=== PATIENT | male | born 1990 | race Caucasian/White ===

== ENCOUNTER 2017-03-23 17:00 | Inpatient (IN) | payer OTHER ==
[2017-03-23 17:09] VITALS: BMI 26.5
[2017-03-23 18:13] LABS: RBC URINE 20 /hpf (0-3); URINE BACTERIA RARE (<OCC); URINE BILIRUBIN NEGATIVE (NEGATIVE); URINE BLOOD 2+ (NEGATIVE); URINE COLOR Yellow (YELLOW); URINE GLUCOSE (UA) NORMAL (Normal); URINE KETONE NEGATIVE (NEGATIVE); URINE LEUKOCYTE ESTERASE NEG Leu/uL (Negative); URINE PROTEIN 1+ mg/dL (NEGATIVE); WBC URINE 2 /hpf (0-5)
[2017-03-23 18:37] LABS: BASO # 0.1 K/uL (0.0-0.2); BASO % 0.4 % (0.0-2.0); EOS # 0.1 K/uL (0.0-0.7); EOS % 0.6 % (0.0-4.0); HEMATOCRIT 39.2 % (35.0-51.0); LYMPH # 1.4 K/uL (1.0-4.3); LYMPH % 6.9 % (20.0-40.0); MEAN CELL VOLUME 78.9 fL (80.0-94.0); MEAN CORPUSCULAR HGB CONC 31.7 g/dL (33.0-37.0); MEAN PLATELET VOLUME 7.6 fL (7.2-11.7); MONO % 5.1 % (0.0-10.0); PLATELET COUNT 344 K/uL (130-400); WHITE BLOOD COUNT 20.1 K/uL (4.8-10.8)
[2017-03-23 18:45] LABS: CHLORIDE 105 mmol/L (98-107); POTASSIUM 3.9 mmol/L (3.6-5.2); SODIUM 143 mmol/L (132-148)
[2017-03-23 18:47] LABS: GFR AFRICAN-AMERICAN > 60
[2017-03-23 18:48] LABS: ALB/GLOB RATIO 1.2 (1.0-2.1); ALKALINE PHOSPHATASE 136 U/L (38-126); ALT/SGPT 75 U/L (21-72); AST/SGOT 129 U/L (17-59); BILIRUBIN,TOTAL 0.6 mg/dL (0.2-1.3); BLOOD UREA NITROGEN 12 mg/dL (9-20); CALCIUM 8.8 mg/dl (8.6-10.4); CARBON DIOXIDE 28 mmol/L (22-30); GLUCOSE,RANDOM 102 mg/dL (75-110); TOTAL PROTEIN 7.7 g/dL (6.3-8.3)
[2017-03-23] MEDS ORDERED: Sodium Chloride 0.9% 1,000 ML IV ONE (18:51)
[2017-03-23] MEDS ORDERED: Sodium Chloride 0.9% 1,000 ML ONE (19:01)
[2017-03-23 19:32] LABS: NEUTROPHIL 96 % (50-75); TOTAL CELLS COUNTED 100
--- NOTE | 2017-03-23 20:17 | US ---
EXAM: US Abdomen Limited, Right Upper Quadrant CLINICAL HISTORY: 27 years old, male; Pain; Abdominal pain; Generalized; Additional info: Ruq pain TECHNIQUE: Real-time ultrasound of the right upper quadrant with image documentation. EXAM DATE/TIME: 03/23/2017 6:52 PM COMPARISON: There are no prior studies for comparison. FINDINGS: Liver: Liver appears mildly enlarged.There is hepatopedal flow in the main portal vein. Gallbladder: Gallbladder is distended. There are multiple shadowing stones. There is sludge. There is no wall thickening. Common bile duct: Common bile duct measures 6.5 mm in diameter at the jenny hepatis. Pancreas: Pancreas is partially obscured by bowel gas. Visualized portion is echogenic. Right kidney: Right kidney is unremarkable. Aorta: Visualized portions of the aorta and inferior vena cava are unremarkable. IMPRESSION: Gallstones and sludge with mildly prominent common duct Patient was not tender over the gallbladder
[2017-03-23] MEDS ORDERED: Morphine 4 MG/ML VIAL ONE (20:48)
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
--- NOTE | 2017-03-23 21:18 | C.PDOC ---
Time Seen by Provider: 03/23/17 18:36 Chief Complaint (Nursing): Abdominal Pain History Per: Patient, Family Onset/Duration Of Symptoms: Days, Waxing/Waning Current Symptoms Are (Timing): Worse Severity: Severe Location Of Pain/Discomfort: RUQ Radiation Of Pain To:: Back Quality Of Discomfort: "Pain" Associated Symptoms: Nausea, Vomiting Exacerbating Factors: Food Alleviating Factors: None Additional History Per: Prior Records Past Medical History Reviewed: Historical Data, Nursing Documentation, Vital Signs Vital Signs: Last Vital Signs Temp 98.4 F 03/23/17 20:52 Pulse 79 03/23/17 20:52 Resp 16 03/23/17 20:52 BP 116/73 03/23/17 20:52 Pulse Ox 100 03/23/17 21:18 - Medical History PMH: Gastritis Surgical History: No Surg Hx Family History: States: Unknown Family Hx - Social History Hx Alcohol Use: No Hx Substance Use: No - Immunization History Hx Tetanus Toxoid Vaccination: No Hx Influenza Vaccination: No Hx Pneumococcal Vaccination: No Review Of Systems Except As Marked, All Systems Reviewed And Found Negative. Constitutional: Negative for: Weakness Cardiovascular: Negative for: Chest Pain Respiratory: Negative for: Shortness of Breath Gastrointestinal: Positive for: Nausea, Vomiting, Abdominal Pain. Negative for : Diarrhea Musculoskeletal: Negative for: Neck Pain Skin: Negative for: Rash Neurological: Negative for: Weakness, Numbness, Seizures, Altered Mental Status Physical Exam - Physical Exam Appears: Non-toxic Skin: Normal Color, Warm, Dry, No Rash Head: Atraumatic, Normacephalic Eye(s): bilateral: PERRL, EOMI Neck: Normal ROM, Supple Cardiovascular: Rhythm Regular Respiratory: Normal Breath Sounds Gastrointestinal/Abdominal: Soft, Tenderness (RUQ) Extremity: Normal ROM Neurological/Psych: Oriented x3, Normal Motor, Normal Sensation ED Course And Treatment - Laboratory Results Result Diagrams: 03/23/17 18:34 03/23/17 18:34 Lab Interpretation: Abnormal Interpretation Of Abnormal: Leukocytosis. Abnormal LFTs. O2 Sat by Pulse Oximetry: 100 Pulse Ox Interpretation: Normal - CT Scan/US RUQ Sono Other Rad Studies (CT/US): Read By Radiologist, Radiology Report Reviewed CT/US Interpretation: IMPRESSION: Gallstones and sludge with mildly prominent common duct - Physician Consult Information Physician Contacted: Higinio Rivera (Surgery) Outcome Of Conversation: He wants pt admitted on hospitalist service. He recommened a HIDA scan. He is planning taking pt to OR tomorrow. Progress - Interventions Interventions:: Observation, Intravenous fluid - Medications Administered Intravenous: Antiemetic, H-2 mirela, NSAID, Opiate - Data Reviewed Data Reviewed: Lab, Diagnostic imaging, Old records - Patient Status Patient status: Partially improved - Continuity of Care Discussed patient case with:: Patient, Family-HIPPA compliant, ED Nurse, On- call PMD-pt unassigned Discussed pt. case with senior solutions workflow consultant/specialty: General Surgery - Patient Plan Patient Plan: Admission Disposition Discussed With DrCyndi: Manolo Tyson Comment: He accepted pt on hospitalist service. Doctor Will See Patient In The: Hospital Counseled Patient/Family Regarding: Studies Performed, Diagnosis - Disposition Disposition: HOSPITALIZED Disposition Time: 21:27 Condition: FAIR - Clinical Impression Clinical Impression: Right upper quadrant abdominal pain, Leukocytosis, Gallstones
[2017-03-23] MEDS ORDERED: Sodium Chloride 0.9% 1,000 ML IV SCH (22:15)
[2017-03-23] MEDS: Potassium Ch 20mEq in D5-1/2NS 1,000 ML IV SCH (22:57)
[2017-03-24 06:26] LABS: BASO % 0.3 % (0.0-2.0); HEMATOCRIT 37.7 % (35.0-51.0); LYMPH # 0.9 K/uL (1.0-4.3); LYMPH % 6.8 % (20.0-40.0); MEAN CELL VOLUME 78.5 fL (80.0-94.0); MEAN CORPUSCULAR HEMOGLOBIN 25.1 pg (27.0-31.0); MEAN PLATELET VOLUME 7.9 fL (7.2-11.7); MONO # 0.8 K/uL (0.0-0.8); MONO % 6.2 % (0.0-10.0); PLATELET COUNT 288 K/uL (130-400); RED CELL DISTRIBUTION WIDTH 13.1 % (11.5-14.5); WHITE BLOOD COUNT 13.3 K/uL (4.8-10.8)
--- NOTE | 2017-03-24 06:51 | CP.PCM.PN ---
Subjective - Date & Time of Evaluation Date of Evaluation: 03/24/17 Time of Evaluation: 07:07 - Subjective Subjective: PGY 1 Medicine Note- Dr. Mack 's service Pt seen and examined in no acute distress. He states that he is in sharp pain. The pain is rated a 10/10. He states that he does not want to move or take deep breaths because of the pain. Patient last consumed a meal around midnight. Patient denies subjective fevers or chills, chest pain, nausea, vomiting, paresthesias, headaches at this time. Objective - Vital Signs/Intake and Output Vital Signs (last 24 hours): Temp Pulse Resp BP Pulse Ox 98.3 F 85 20 139/90 97 03/24/17 00:19 03/24/17 00:19 03/24/17 01:38 03/24/17 00:19 03/24/17 00:19 - Medications Medications: Current Medications Ceftriaxone Sodium 1 gm/ (Sodium Chloride) 100 mls @ 100 mls/hr IVPB DAILY LAILA Potassium Chloride/Dextrose/Sod Cl (Potassium Chl 20 Meq In D5-1/2ns) 1,000 mls @ 100 mls/hr IV .Q10H LAILA Last Admin: 03/23/17 22:57 Dose: 100 mls/hr Morphine Sulfate (Morphine) 3 mg IVP Q3H PRN PRN Reason: Pain, moderate (4-7) Last Admin: 03/24/17 05:08 Dose: 3 mg Ondansetron HCl (Zofran Inj) 4 mg IVP Q6H PRN PRN Reason: Nausea/Vomiting Last Admin: 03/24/17 05:14 Dose: 4 mg Pantoprazole Sodium (Protonix Inj) 40 mg IVP DAILY [facility] Pneumococcal Polyvalent Vaccine (Pneumovax 23 Vaccine) 0.5 ml IM .ONCE ONE Stop: 03/25/17 10:01 - Labs Labs: 03/24/17 06:18 - Constitutional Appears: Non-toxic, No Acute Distress - Head Exam Head Exam: ATRAUMATIC, NORMAL INSPECTION, NORMOCEPHALIC - Eye Exam Eye Exam: EOMI, Normal appearance, PERRL Pupil Exam: NORMAL ACCOMODATION - ENT Exam ENT Exam: Mucous Membranes Moist - Neck Exam Neck Exam: Full ROM - Respiratory Exam Respiratory Exam: NORMAL BREATHING PATTERN - Cardiovascular Exam Cardiovascular Exam: +S1, +S2 - GI/Abdominal Exam GI & Abdominal Exam: Guarding, Soft, Tenderness (RUQ), Normal Bowel Sounds - Extremities Exam Extremities Exam: Full ROM, Normal Capillary Refill - Back Exam Back Exam: Full ROM - Neurological Exam Neurological Exam: Alert, Awake, CN II-XII Intact, Oriented x3 - Psychiatric Exam Psychiatric exam: Normal Affect, Normal Mood - Skin Skin Exam: Dry, Intact, Normal Color, Warm Assessment and Plan - Assessment and Plan (Free Text) Assessment: RUQ abdominal pain -Likely secondary to cholecystitis -Leukocytosis on admission 20.1. Decreases to 13.3 -Patient is afebrile -Abdominal u/s: Gallstones and sludge with mildly prominent common duct measuring approx 6.5 mm in diameter . Refer to complete read -HIDA scan: Non visualization of cystic duct, common duct, small bowel at 60 mins. Fat delaying image not performed as patient going to OR -Rocephin 1gm ivpb daily -Morphine 3mg ivp q3 prn pain moderate changed to Dilaudid 1mg Q4 PRN -D5 1/2NS with 20meqKCl @ 100cc/hr -Protonix 40mg ivp daily -Liquid diet -VTE ppx on hold in case patient goes to OR -EKG performed for pre op. -Detsky score Class 1 which is a 6% Risk of complications for non cardiac surgery. 27 yo patient has no cardiac history significant for NC arrythmia, nor CVA, COPD, DM. -Surgery Dr Rivera consulted- F/U Hx of herniated discs -Dilaudid 1mg Q4 PRN PPX -NPO -VTE ppx on hold -SCDs -Protonix 40mg ivp daily -D5 1/2NS with 20meqKCl @ 100cc/hr
[2017-03-24 06:59] LABS: CHLORIDE 101 mmol/L (98-107); POTASSIUM 3.5 mmol/L (3.6-5.2); SODIUM 137 mmol/L (132-148)
[2017-03-24 07:01] LABS: BILIRUBIN,TOTAL 1.7 mg/dL (0.2-1.3); CARBON DIOXIDE 24 mmol/L (22-30)
[2017-03-24 07:02] LABS: ALB/GLOB RATIO 1.2 (1.0-2.1); ALKALINE PHOSPHATASE 214 U/L (38-126); ALT/SGPT 315 U/L (21-72); AST/SGOT 310 U/L (17-59); BLOOD UREA NITROGEN 8 mg/dL (9-20); CALCIUM 8.1 mg/dl (8.6-10.4); GLUCOSE,RANDOM 146 mg/dL (75-110); MAGNESIUM 1.9 mg/dL (1.6-2.3); PHOSPHOROUS 3.1 mg/dL (2.5-4.5); TOTAL PROTEIN 6.8 g/dL (6.3-8.3)
[2017-03-24 07:04] LABS: GFR AFRICAN-AMERICAN > 60
[2017-03-24] MEDS: Potassium Ch 20mEq in D5-1/2NS 1,000 ML IV SCH (08:17)
[2017-03-24 09:30] LABS: NEUTROPHIL 91 % (50-75); TOTAL CELLS COUNTED 100
[2017-03-24] MEDS ORDERED: HYDROmorphone 1 mg/ml ISec IVP PRN (10:55)
[2017-03-24 11:18] LABS: AMYLASE 70 U/L (30-110)
[2017-03-24 11:44] LABS: INR 1.1
[2017-03-24] MEDS ORDERED: Midazolam 2 MG/2 ML VIAL ONE (13:02)
[2017-03-24] MEDS ORDERED: Propofol 10 mg/ml Inj (20 ML) ONE ×2 (13:02→14:47)
[2017-03-24] MEDS ORDERED: Neostigmine Methylsulfate 3mg/3ml Syringe IV ONE (14:19)
--- NOTE | 2017-03-24 14:19 | NM ---
PROCEDURE: Nuclear Medicine Hepatobiliary Scan HISTORY: Abdominal pain. COMPARISON: None available. TECHNIQUE: 5.1 mCi of technetium 99m Mebrofenin was administered intravenously. Planar images of the abdomen were obtained at 5 min intervals to 60 mins. Delayed images were also obtained. FINDINGS: LIVER: Timely and heterogeneous uptake COMMON BILE DUCT: Not visualized at 60 minutes GALLBLADDER: Not identified at 60 mins. SMALL BOWEL: Not Identified at 60 mins. IMPRESSION: Nonvisualization of cystic duct, common duct, small bowel at 60 minutes. Department was informed fat delayed imaging was not necessary as the patient is going to the OR.
[2017-03-24] MEDS ORDERED: Morphine 4 MG/ML VIAL ONE (15:04)
[2017-03-24] MEDS: HYDROmorphone 0.5 mg/0.5 ml ISec IVP PRN ×2 (15:34→16:08)
[2017-03-24 15:49] LABS: HEMATOCRIT 37.3 % (35.0-51.0); MEAN CORPUSCULAR HEMOGLOBIN 25.1 pg (27.0-31.0); MEAN CORPUSCULAR HGB CONC 31.8 g/dL (33.0-37.0); MEAN PLATELET VOLUME 7.7 fL (7.2-11.7); RED CELL DISTRIBUTION WIDTH 13.1 % (11.5-14.5); WHITE BLOOD COUNT 12.7 K/uL (4.8-10.8)
[2017-03-24] MEDS ORDERED: Potassium Chloride 20 MEQ in Dextrose 5%/0.45% NS 1,000 ML IV SCH (18:40)
[2017-03-25] MEDS: Potassium Ch 20mEq in D5-1/2NS 1,000 ML IV SCH ×2 (03:15→17:03)
[2017-03-25 06:44] LABS: CHLORIDE 96 mmol/L (98-107); POTASSIUM 3.5 mmol/L (3.6-5.2); SODIUM 132 mmol/L (132-148)
[2017-03-25 06:46] LABS: BILIRUBIN,TOTAL 4.1 mg/dL (0.2-1.3); GFR AFRICAN-AMERICAN > 60
[2017-03-25 06:47] LABS: ALKALINE PHOSPHATASE 246 U/L (38-126); ALT/SGPT 277 U/L (21-72); AST/SGOT 195 U/L (17-59); BLOOD UREA NITROGEN 4 mg/dL (9-20); CARBON DIOXIDE 30 mmol/L (22-30); GLUCOSE,RANDOM 118 mg/dL (75-110); PHOSPHOROUS 2.6 mg/dL (2.5-4.5); TOTAL PROTEIN 6.6 g/dL (6.3-8.3)
[2017-03-25 06:48] LABS: CALCIUM 8.1 mg/dl (8.6-10.4); MAGNESIUM 1.7 mg/dL (1.6-2.3)
[2017-03-25 06:58] LABS: BASO # 0.1 K/uL (0.0-0.2); BASO % 0.4 % (0.0-2.0); EOS % 0.4 % (0.0-4.0); HEMATOCRIT 36.5 % (35.0-51.0); LYMPH # 1.2 K/uL (1.0-4.3); LYMPH % 10.3 % (20.0-40.0); MEAN CORPUSCULAR HEMOGLOBIN 25.2 pg (27.0-31.0); MEAN CORPUSCULAR HGB CONC 31.9 g/dL (33.0-37.0); MEAN PLATELET VOLUME 7.8 fL (7.2-11.7); MONO % 8.1 % (0.0-10.0); RED CELL DISTRIBUTION WIDTH 13.4 % (11.5-14.5)
--- NOTE | 2017-03-25 07:38 | CP.PCM.PN ---
<Rukhsana Russo - Last Filed: 03/25/17 17:06> Subjective - Date & Time of Evaluation Date of Evaluation: 03/25/17 Time of Evaluation: 07:38 - Subjective Subjective: PGY 1 Medicine Note- Dr. Cai's service Pt seen and examined in no acute distress. Pt is s/p day 1 cholecystectomy. On earlier assessment, patient stated that he was in pain though he was not yet due for his next medication dose. On second assessment, patient was found to be resting comfortable with no signs of apparent discomfort. Patient is tolerating a liquid diet and burping. He admits to eructation (burping) and denies flatus and BM's. Patient states that his last BM was yesterday; however he does not have bowel movements daily. Patient was febrile early this morning and then again this afternoon. The high was 101.9. Patient was administered tylenol. Patient again would not address the nature of his ankle bracelet but admitted that his cash management officer is aware. Patient denies nausea, vomiting, diarrhea, chest pain, palpitations or headaches at this time. Objective - Vital Signs/Intake and Output Vital Signs (last 24 hours): Temp Pulse Resp BP Pulse Ox 98.7 F 104 H 18 106/70 95 03/25/17 00:00 03/25/17 00:00 03/25/17 00:00 03/25/17 00:00 03/25/17 00:00 Intake and Output: 03/25/17 03/25/17 06:59 18:59 Intake Total 300 Output Total 115 Balance 185 - Medications Medications: Current Medications Hydromorphone HCl (Dilaudid) 2 mg IVP Q4H PRN PRN Reason: Pain, moderate (4-7) Last Admin: 03/25/17 05:16 Dose: 2 mg Ceftriaxone Sodium 1 gm/ (Sodium Chloride) 100 mls @ 100 mls/hr IVPB DAILY LAILA Last Admin: 03/24/17 10:59 Dose: 100 mls/hr Potassium Chloride/Dextrose/Sod Cl (Potassium Chl 20 Meq In D5-1/2ns) 1,000 mls @ 100 mls/hr IV .Q10H LAILA Last Admin: 03/25/17 03:15 Dose: 100 mls/hr Ondansetron HCl (Zofran Inj) 4 mg IVP Q6H PRN PRN Reason: Nausea/Vomiting Last Admin: 03/24/17 10:59 Dose: 4 mg Pantoprazole Sodium (Protonix Inj) 40 mg IVP DAILY LAILA Last Admin: 03/24/17 10:59 Dose: 40 mg Pneumococcal Polyvalent Vaccine (Pneumovax 23 Vaccine) 0.5 ml IM .ONCE ONE Stop: 03/25/17 10:01 - Labs Labs: 03/25/17 06:24 03/25/17 06:24 PT 12.7 SECONDS (9.7-12.2) H 03/24/17 11:22 INR 1.1 03/24/17 11:22 APTT 33 SECONDS (21-34) 03/24/17 11:22 - Constitutional Appears: Non-toxic, No Acute Distress - Head Exam Head Exam: ATRAUMATIC, NORMAL INSPECTION, NORMOCEPHALIC - Eye Exam Eye Exam: EOMI, Normal appearance, PERRL Pupil Exam: NORMAL ACCOMODATION - ENT Exam ENT Exam: Mucous Membranes Moist - Neck Exam Neck Exam: Full ROM - Respiratory Exam Respiratory Exam: Clear to Ausculation Bilateral, NORMAL BREATHING PATTERN. absent: Wheezes - Cardiovascular Exam Cardiovascular Exam: REGULAR RHYTHM, +S1, +S2 - GI/Abdominal Exam GI & Abdominal Exam: Guarding, Soft, Tenderness (RUQ ), Normal Bowel Sounds Additional comments: surgical site c/d/i with ISRA drain in place ~ 40cc of serosanguineous drainage noted - Extremities Exam Extremities Exam: Full ROM, Normal Capillary Refill. absent: Pedal Edema, Tenderness - Back Exam Back Exam: Full ROM - Neurological Exam Neurological Exam: Alert, Awake, CN II-XII Intact, Oriented x3 Neuro motor strength exam: Left Upper Extremity: 5, Right Upper Extremity: 5, Left Lower Extremity: 5, Right Lower Extremity: 5 - Psychiatric Exam Psychiatric exam: Normal Affect, Normal Mood - Skin Skin Exam: Dry, Intact, Normal Color, Warm Assessment and Plan - Assessment and Plan (Free Text) Assessment: S/P Cholecystectomy -Patient febrile around 7 am 101.9. (Vital signs were entered in late this morning) . Rechecked at 13:00 at 101.7. Acetaminophen administered -Abdominal u/s: Gallstones and sludge with mildly prominent common duct measuring approx 6.5 mm in diameter . Refer to complete read -HIDA scan: Non visualization of cystic duct, common duct, small bowel at 60 mins. Fat delaying image not performed as patient going to OR -Rocephin 1gm ivpb daily -Dilaudid 2 mg IV Q4 -D5 1/2NS with 20meqKCl @ 100cc/hr. Will discontinue once patient is on regular diet. -Protonix 40mg ivp daily -Liquid diet -EKG performed for pre op - NSR -MRCP in AM for elevated LFTs. NPO in AM -Surgery Dr Rivera on the case- F/U recommendations Hx of herniated discs -Dilaudid 2mg Q4 PRN PPX -NPO -SCDs. Encourage ambulation as tolerated. -Protonix 40mg ivp daily -Incentive Spirometer <Mariel Cai V - Last Filed: 03/25/17 19:48> Objective - Vital Signs/Intake and Output Vital Signs (last 24 hours): Temp Pulse Resp BP Pulse Ox 98.1 F 116 H 20 104/65 95 03/25/17 16:00 03/25/17 16:00 03/25/17 16:00 03/25/17 16:00 03/25/17 16:00 Intake and Output: 03/25/17 03/26/17 18:59 06:59 Output Total 40 Balance -40 - Medications Medications: Current Medications Acetaminophen (Tylenol 325mg Tab) 650 mg PO Q6 PRN PRN Reason: Fever >100.4 F Last Admin: 03/25/17 14:57 Dose: 650 mg Hydromorphone HCl (Dilaudid) 2 mg IVP Q4H PRN PRN Reason: Pain, moderate (4-7) Last Admin: 03/25/17 17:29 Dose: 2 mg Potassium Chloride/Dextrose/Sod Cl (Potassium Chl 20 Meq In D5-1/2ns) 1,000 mls @ 100 mls/hr IV .Q10H LAILA Last Admin: 03/25/17 17:03 Dose: 100 mls/hr Piperacillin Sod/Tazobactam Sod (Zosyn 3.375 Gm Iv Premix) 3.375 gm in 50 mls @ 100 mls/hr IVPB Q6H LAILA Last Admin: 03/25/17 19:14 Dose: 100 mls/hr Ondansetron HCl (Zofran Inj) 4 mg IVP Q6H PRN PRN Reason: Nausea/Vomiting Last Admin: 03/24/17 10:59 Dose: 4 mg Pantoprazole Sodium (Protonix Inj) 40 mg IVP DAILY [facility]ILA Last Admin: 03/25/17 10:21 Dose: 40 mg - Labs Labs: 03/25/17 06:24 03/25/17 06:24 PT 12.7 SECONDS (9.7-12.2) H 03/24/17 11:22 INR 1.1 03/24/17 11:22 APTT 33 SECONDS (21-34) 03/24/17 11:22 Attending/Attestation - Attestation I have personally seen and examined this patient.: Yes I have fully participated in the care of the patient.: Yes I have reviewed all pertinent clinical information, including history, physical exam and plan: Yes Notes (Text): Patient seen, examined and case discussed with day-time resident. Patient seen this morning. Patient reporting abdominal pain and burping. Patient denies flatus nor bowel movement at the time of my exam. Patient denied nausea nor vomitting. Patient was resting comfortably prior to my arrival and woke up with I interviewed him. Patient noted to have monitoring ankle bracelet over his right lower extremity, patient did not go into details regarding his bracelet but he noted that his cash management officer was aware he was in the hospital. Assessment/Plan 1) Acute cholecystis; Cholelithiasis * General surgery (Dr. Field) on the case-->help appreciated * Infectious disease (Dr. Vila) on the case-->help appreciated * HIDA (03/23/17): nonvisualization of cystic duct, common duct, small bowel at 60 minutes. Department was informated fate delayed imaging was not necessary at the patient was going to the OR * Abdominal US (03/23/17): gallstones and sludge with mildly prominent common duct. Not tender over the gallbladder * Ordered for MRCP per surgery to r/o CBD and recommended for infectious disease for persistent fever * Rocephin discontinued; Started on Zosyn 3.75 IV Q 6hr per ID * Dilaudid 2mg IVQ 4PRN pain * Tylenol 650mg PO Q 6PRN T>100.4F * D51/2NS 100cc/hr 2) Postoperative Fever * Infectious disease (Dr. Vila) on the case-->help appreciated * Ordered for chest xray * Tylenol 650mg PO Q 6PRN T>100.4F * Rocephin discontinued; Started on Zosyn 3.75 IV Q 6hr per ID * Incentive spirometer 3) Hx of herniated discs * Dilaudid 2mg Q4 PRN moderate pain * Patient noted he was on narcotic pain prns per his PMD to relieve his back pain 4) Hypokalemia * replete 5) Transaminitis * Downtrending 6) Abnormal UA * repeat UA 7) PPX * NPO * SCDs. Encourage ambulation as tolerated. * Protonix 40mg ivp daily * Incentive Spirometer * Per surgery to determine when anticoagulation can be restarted
[2017-03-25] MEDS ORDERED: Potassium Chloride 20 mEq ER Tab PO ONE (09:30)
[2017-03-25] MEDS ORDERED: Pneumococcal 23-Valent Vaccine IM ONE (10:00)
--- NOTE | 2017-03-25 15:52 | CP.PCM.PN ---
Subjective - Date & Time of Evaluation Date of Evaluation: 03/25/17 Time of Evaluation: 15:50 - Subjective Subjective: SP lap adelso yesterday for severe acute cholecystis stable T101.9 ISRA serosanguinous abd incisional tenderness tolerating liquids P MRCP RO CBD stone Objective - Vital Signs/Intake and Output Vital Signs (last 24 hours): Temp Pulse Resp BP Pulse Ox 101.7 F H 104 H 20 105/69 94 L 03/25/17 14:57 03/25/17 07:00 03/25/17 07:00 03/25/17 07:00 03/25/17 07:00 Intake and Output: 03/25/17 03/25/17 06:59 18:59 Intake Total 300 Output Total 115 Balance 185 - Medications Medications: Current Medications Acetaminophen (Tylenol 325mg Tab) 650 mg PO Q6 PRN PRN Reason: Fever >100.4 F Last Admin: 03/25/17 14:57 Dose: 650 mg Hydromorphone HCl (Dilaudid) 2 mg IVP Q4H PRN PRN Reason: Pain, moderate (4-7) Last Admin: 03/25/17 13:18 Dose: 2 mg Ceftriaxone Sodium 1 gm/ (Sodium Chloride) 100 mls @ 100 mls/hr IVPB DAILY [facility] Last Admin: 03/25/17 10:21 Dose: 100 mls/hr Potassium Chloride/Dextrose/Sod Cl (Potassium Chl 20 Meq In D5-1/2ns) 1,000 mls @ 100 mls/hr IV .Q10H [facility] Last Admin: 03/25/17 03:15 Dose: 100 mls/hr Ondansetron HCl (Zofran Inj) 4 mg IVP Q6H PRN PRN Reason: Nausea/Vomiting Last Admin: 03/24/17 10:59 Dose: 4 mg Pantoprazole Sodium (Protonix Inj) 40 mg IVP DAILY [facility] Last Admin: 03/25/17 10:21 Dose: 40 mg - Labs Labs: 03/25/17 06:24 03/25/17 06:24 PT 12.7 SECONDS (9.7-12.2) H 03/24/17 11:22 INR 1.1 03/24/17 11:22 APTT 33 SECONDS (21-34) 03/24/17 11:22
--- NOTE | 2017-03-25 18:30 | CP.PCM.CON ---
History of Present Illness - History of Present Illness History of Present Illness: 27 year old male admitted with RUQ abdominal pain radiating to the right flank for 2 weeks. underwent cholecystectomy and referred for ID eval of fever denies chest pain cough or SOB + abd discomfort PMHx: disc herniations PSHx: right wrist ALL: NKDA Medications: Motrin 800mg po and Prilosec Social Hx: smokes cigarettes 5-6/day for the last year; used to drink 3 years ago 1 and a half pints of [place] daily for years; denies drug use; lives with children's mother and does not work Family Hx: colitis in mother Review of Systems - Constitutional Constitutional: As Per HPI - EENT Eyes: absent: As Per HPI, Blind Spots, Blurred Vision, Change in Vision, Decreased Night Vision, Diplopia, Discharge, Dry Eye, Exophthalmos, Floaters, Irritation, Itchy Eyes, Loss of Peripheral Vision, Pain, Photophobia, Requires Corrective Lenses, Sees Flashes, Spots in Vision, Tunnel Vision, Other Visual Disturbances, Loss of Vision, Other Ears: absent: As Per HPI, Decreased Hearing, Ear Discharge, Ear Pain, Tinnitus, Abnormal Hearing, Disequilibrium, Dizziness, Other Nose/Mouth/Throat: absent: As Per HPI, Epistaxis, Nasal Congestion, Nasal Discharge, Nasal Obstruction, Nasal Trauma, Nose Pain, Post Nasal Drip, Sinus Pain, Sinus Pressure, Bleeding Gums, Change in Voice, Dental Pain, Dry Mouth, Dysphagia, Halitosis, Hoarsness, Lip Swelling, Mouth Lesions, Mouth Pain, Odynophagia, Sore Throat, Throat Swelling, Tongue Swelling, Facial Pain, Neck Pain, Neck Mass, Other - Cardiovascular Cardiovascular: absent: As Per HPI, Acrocyanosis, Chest Pain, Chest Pain at Rest , Chest Pain with Activity, Claudication, Diaphoresis, Dyspnea, Dyspnea on Exertion, Edema, Irregular Heart Rhythm, Pain Radiating to Arm/Neck/Jaw, Leg Edema, Leg Ulcers, Lightheadedness, Orthopnea, Palpitations, Paroxysmal Nocturnal Dyspnea, Pedal Edema, Radiating Pain, Rapid Heart Rate, Slow Heart Rate, Syncope, Other - Respiratory Respiratory: absent: As Per HPI, Cough, Dyspnea, Hemoptysis, Dyspnea on Exertion , Wheezing, Snoring, Stridor, Pain on Inspiration, Chest Congestion, Excessive Mucous Production, Change in Mucous Color, Pain with Coughing, Other - Gastrointestinal Gastrointestinal: As Per HPI, Abdominal Pain - Genitourinary Genitourinary: absent: As Per HPI, Change in Urinary Stream, Difficulty Urinating, Dysuria, Flank Pain, Hematuria, Pyuria, Nocturia, Urinary Incontinence, Urinary Frequency, Urinary Hesitance, Urinary Urgency, Voiding Freq/Small Amts, Freq UTI, Hx Renal/Bladder Calculi, Hx /Renal Surgery, Bladder Distension, Other - Musculoskeletal Musculoskeletal: absent: As Per HPI, Abnormal Gait, Arthralgias, Atrophy, Back Pain, Deformity, Joint Swelling, Limited Range of Motion, Loss of Height, Muscle Cramps, Muscle Weakness, Myalgias, Neck Pain, Numbness, Radiating Pain into Limb, Stiffness, Tingling, Other - Integumentary Integumentary: absent: As Per HPI, Acne, Alopecia, Bleeding Lesions, Change in Hair, Change in Nails, Change in Pigmentation, Changing Lesions, Dry Skin, Erythema, Furuncle, Hirsutism, Lesions, New Lesions, Non-Healing Lesions, Photosensitivity, Pruritus, Rash, Skin Pain, Skin Ulcer, Sores, Striae, Swelling , Unusual Bruising, Wounds, Jaundice, Other - Neurological Neurological: absent: As Per HPI, Abnormal Gait, Abnormal Hearing, Abnormal Movements, Abnormal Speech, Behavioral Changes, Burning Sensations, Confusion, Convulsions, Disequilibrium, Dizziness, Numbness, Focal Weakness, Frequent Falls , Headaches, Lack of Coordination, Loss of Vision, Memory Loss, Paresthesias, Radicular Pain, Restless Legs, Sensory Deficit, Syncope, Tingling, Tremor, Vertigo, Weakness, Other Visual Disturbances, Other - Psychiatric Psychiatric: absent: As Per HPI, Abnormal Sleep Pattern, Anhedonia, Anxiety, Auditory Hallucinations, Behavioral Changes, Change in Appetite, Change in Libido, Confusion, Depression, Difficulty Concentrating, Hallucinations, Homicidal Ideation, Hopelessness, Irritability, Memory Loss, Mood Swings, Panic Attacks, Paranoia, Suicidal Ideation, Visual Hallucinations, Tactile Hallucinations, Other - Hematologic/Lymphatic Hematologic: absent: As Per HPI, Easy Bleeding, Easy Bruising, Lymphadenopathy, Other Past Patient History - Past Medical History & Family History Past Medical History?: Yes - Past Social History Smoking Status: Never Smoked - CARDIAC Hx Cardiac Disorders: No - PULMONARY Hx Respiratory Disorders: No - NEUROLOGICAL Hx Neurological Disorder: No - HEENT Hx HEENT Problems: No - RENAL Hx Chronic Kidney Disease: No - ENDOCRINE/METABOLIC Hx Endocrine Disorders: No - HEMATOLOGICAL/ONCOLOGICAL Hx Blood Disorders: No - INTEGUMENTARY Hx Dermatological Problems: No - MUSCULOSKELETAL/RHEUMATOLOGICAL Hx Falls: No - GASTROINTESTINAL Hx Gastrointestinal Disorders: Yes Hx Gastritis: Yes - GENITOURINARY/GYNECOLOGICAL Hx Genitourinary Disorders: No - PSYCHIATRIC Hx Substance Use: No - SURGICAL HISTORY Hx Surgeries: No - ANESTHESIA Hx Anesthesia: No Hx Anesthesia Reactions: No Hx Malignant Hyperthermia: No Has any member of the family had a problem w/ anesthesia?: No Meds Allergies/Adverse Reactions: Allergies Allergy/AdvReac Type Severity Reaction Status Date / Time No Known Allergies Allergy Verified 03/23/17 17:08 - Medications Medications: Current Medications Acetaminophen (Tylenol 325mg Tab) 650 mg PO Q6 PRN PRN Reason: Fever >100.4 F Last Admin: 03/25/17 14:57 Dose: 650 mg Hydromorphone HCl (Dilaudid) 2 mg IVP Q4H PRN PRN Reason: Pain, moderate (4-7) Last Admin: 03/25/17 17:29 Dose: 2 mg Ceftriaxone Sodium 1 gm/ (Sodium Chloride) 100 mls @ 100 mls/hr IVPB DAILY [facility] Last Admin: 03/25/17 10:21 Dose: 100 mls/hr Potassium Chloride/Dextrose/Sod Cl (Potassium Chl 20 Meq In D5-1/2ns) 1,000 mls @ 100 mls/hr IV .Q10H [facility] Last Admin: 03/25/17 17:03 Dose: 100 mls/hr Ondansetron HCl (Zofran Inj) 4 mg IVP Q6H PRN PRN Reason: Nausea/Vomiting Last Admin: 03/24/17 10:59 Dose: 4 mg Pantoprazole Sodium (Protonix Inj) 40 mg IVP DAILY [facility] Last Admin: 03/25/17 10:21 Dose: 40 mg Physical Exam - Constitutional Appears: Non-toxic, Chronically Ill - Head Exam Head Exam: NORMOCEPHALIC - Eye Exam Eye Exam: PERRL. absent: Scleral icterus - ENT Exam ENT Exam: Mucous Membranes Dry, Normal External Ear Exam - Neck Exam Neck exam: Negative for: Lymphadenopathy - Respiratory Exam Respiratory Exam: Decreased Breath Sounds, Rhonchi - Cardiovascular Exam Cardiovascular Exam: REGULAR RHYTHM, +S1, +S2 - GI/Abdominal Exam GI & Abdominal Exam: Diminished Bowel Sounds, Distended, Guarding, Soft, Tenderness. absent: Hernia, Rigid - Rectal Exam Rectal Exam: Deferred - Exam Exam: NORMAL INSPECTION - Extremities Exam Extremities exam: Negative for: calf tenderness, pedal edema - Back Exam Back exam: absent: CVA tenderness (L), CVA tenderness (R) - Neurological Exam Neurological exam: Alert, CN II-XII Intact, Oriented x3, Reflexes Normal - Psychiatric Exam Psychiatric exam: Normal Mood - Skin Skin Exam: Dry Results - Vital Signs Recent Vital Signs: Last Vital Signs Temp 98.1 F 03/25/17 16:00 Pulse 116 H 03/25/17 16:00 Resp 20 03/25/17 16:00 BP 104/65 03/25/17 16:00 Pulse Ox 95 03/25/17 16:00 - Labs Result Diagrams: 03/26/17 07:20 03/26/17 07:20 Labs: Laboratory Results - last 24 hr 03/25/17 03/25/17 06:24 06:24 WBC 12.0 H RBC 4.63 Hgb 11.6 L Hct 36.5 MCV 79.0 L MCH 25.2 L MCHC 31.9 L RDW 13.4 Plt Count 261 MPV 7.8 Neut % (Auto) 80.8 H Lymph % (Auto) 10.3 L [place] % (Auto) 8.1 Eos % (Auto) 0.4 Baso % (Auto) 0.4 Neut # 9.7 H Lymph # 1.2 [place] # 1.0 H Eos # 0.0 Baso # 0.1 Sodium 132 Potassium 3.5 L Chloride 96 L Carbon Dioxide 30 Anion Gap 10 BUN 4 L Creatinine 0.5 L Est GFR ( Amer) > 60 Est GFR (Non-Af Amer) > 60 Random Glucose 118 H Calcium 8.1 L Phosphorus 2.6 Magnesium 1.7 Total Bilirubin 4.1 H AST 195 H D ALT 277 H Alkaline Phosphatase 246 H Total Protein 6.6 Albumin 3.3 L Globulin 3.3 Albumin/Globulin Ratio 1.0 Assessment & Plan (1) Fever Status: Acute (2) Fever Status: Acute (3) Gallstones Status: Acute (4) Leukocytosis Status: Acute (5) Right upper quadrant abdominal pain Status: Acute
[2017-03-25] MEDS: Piperacill/Tazo 3.375gm in Dex 3.375 GM/50 ML BAG IVPB SCH (19:14)
[2017-03-25] MEDS ORDERED: POLYETHYLENE GLYCOL 3350 17 GM/Dose PACKET PO ONE (22:16)
[2017-03-26] MEDS: Potassium Ch 20mEq in D5-1/2NS 1,000 ML IV SCH ×5 (00:19→20:32)
[2017-03-26] MEDS: Piperacill/Tazo 3.375gm in Dex 3.375 GM/50 ML BAG IVPB SCH ×4 (02:27→20:31)
--- NOTE | 2017-03-26 07:27 | OP ---
PROCEDURE DATE: 03/24/2017 PREOPERATIVE DIAGNOSIS: Acute cholecystitis. POSTOPERATIVE DIAGNOSIS: Acute cholecystitis. PROCEDURE PERFORMED: Laparoscopic cholecystectomy. SURGEON: Higinio Rivera MD [employer] TRAINER: residential mental health worker. ANESTHESIA: General endotracheal. ESTIMATED BLOOD LOSS: 100 mL. POSTOPERATIVE CONDITION: Stable. INDICATIONS FOR SURGERY: This is a 27-year-old male under house arrest who presented last night with right upper quadrant pain. Found to have gallstones and evidence of acute cholecystitis. He was ta rosalinda to the OR today for a laparoscopic cholecystectomy. GROSS FINDINGS: The gallbladder was acutely inflamed and distended. There were loose adhesions to t he surrounding duodenum and omentum and mesentery, which were all taken down easily. The patient had a very large cystic duct, which could not be clipped adequately so a OLLIE stapler was used to divide the cystic duct. Prior to this, the anatomy including the cystic duct, gallbladder and the cystic du ct/common duct junction were very clearly identified. There was severe acute inflammation in the gal lbladder and taking it out of the gallbladder bed was difficult causing a fair amount of bleeding. T here was also bleeding from a simple laceration lateral to the liver, which needed to be repaired lap aroscopically. Otherwise, there were no abnormal findings. PROCEDURE: The patient was taken to the operating room. General anesthesia was administered and the abdomen was prepped and draped. A paraumbilical cutdown was performed, a blunt port was inserted an d the abdomen was insufflated with CO2. After adequate insufflation, an epigastric and 2 right upper quadrant ports were placed under direct vision. The gallbladder was first decompressed using a need le and suction and some of the bile was sent for culture. After it was adequately decompressed, it w as grasped and retracted and the cystic duct was carefully dissected free of surrounding tissue as no carmen above. Once the cystic duct had been carefully dissected free, again the anatomy was clearly adan ntified with the cystic duct, the gallbladder and the cystic duct/common duct junction are very clear ly identified. Because of the large caliber of the cystic duct, a OLLIE Endo stapler was placed across it and fired dividing the cystic duct in half. The cystic artery was then carefully identified, dis sected free, clipped and divided. The gallbladder was then removed from the bed using the cautery. During this maneuver, there was noted to be some bleeding laterally in the bed from a simple lacerati on and this was repaired laparoscopically. The gallbladder itself was removed painstakingly from the bed as there was no clear gallbladder, liver interface. Bleeding was attempted to be controlled as we dissected it free. The gallbladder, after approximately 45 minutes of dissection, was finally rem lina and placed in an EndoCatch bag and removed through the epigastric port. The epigastric port had to be widened with a Bovie in order for us to remove the gallbladder adequately. The ports were rep laced back inside and a fair amount of blood clots were removed using the suction device then the abd omen was irrigated with saline. A Frederick drain was then left in the gallbladder bed and brought out t hrough a lateral stab wound. Also it had been noted during the initial cut down that there was a sma ll incarcerated umbilical hernia and this was dissected free in order to place the blunt port. Once the blunt port was removed, the umbilical hernia was repaired with interrupted 0 Prolene sutures. Th e epigastric cutdown was repaired with interrupted heavy Vicryls and all the skin closures were perfo rmed using simple 3-0 Monocryl, except for the umbilical. In the umbilical area there was a large de ad space and this was rectified by utilizing an adjacent tissue transfer closure of approximately 20 square cm by widely mobilizing and using multiple layers of Monocryl, subcuticular Monocryl, and glue . The patient tolerated the procedure well, and returned to recovery room in stable condition. Higinio Rivera MD cc: [id number] TT: 03/25/2017 18:46:43 dn
[2017-03-26 07:32] LABS: BASO % 0.3 % (0.0-2.0); EOS # 0.1 K/uL (0.0-0.7); EOS % 1.1 % (0.0-4.0); HEMATOCRIT 34.1 % (35.0-51.0); LYMPH # 1.2 K/uL (1.0-4.3); LYMPH % 9.4 % (20.0-40.0); MEAN CELL VOLUME 79.7 fL (80.0-94.0); MEAN CORPUSCULAR HEMOGLOBIN 25.8 pg (27.0-31.0); MEAN CORPUSCULAR HGB CONC 32.4 g/dL (33.0-37.0); MEAN PLATELET VOLUME 7.5 fL (7.2-11.7); MONO # 0.9 K/uL (0.0-0.8); MONO % 7.3 % (0.0-10.0); PLATELET COUNT 246 K/uL (130-400); RED CELL DISTRIBUTION WIDTH 13.1 % (11.5-14.5); WHITE BLOOD COUNT 12.2 K/uL (4.8-10.8)
[2017-03-26 07:44] LABS: CHLORIDE 94 mmol/L (98-107)
[2017-03-26 07:45] LABS: SODIUM 134 mmol/L (132-148)
[2017-03-26 07:46] LABS: POTASSIUM 3.9 mmol/L (3.6-5.2)
[2017-03-26 07:48] LABS: ALKALINE PHOSPHATASE 228 U/L (38-126); ALT/SGPT 189 U/L (21-72); AST/SGOT 96 U/L (17-59); BILIRUBIN,TOTAL 2.5 mg/dL (0.2-1.3); BLOOD UREA NITROGEN 3 mg/dL (9-20); CARBON DIOXIDE 33 mmol/L (22-30); GFR AFRICAN-AMERICAN > 60; GLUCOSE,RANDOM 107 mg/dL (75-110); PHOSPHOROUS 2.9 mg/dL (2.5-4.5); TOTAL PROTEIN 6.5 g/dL (6.3-8.3)
[2017-03-26 07:49] LABS: CALCIUM 8.3 mg/dl (8.6-10.4); MAGNESIUM 1.8 mg/dL (1.6-2.3)
[2017-03-26 08:46] LABS: NEUTROPHIL 89 % (50-75); TOTAL CELLS COUNTED 100
[2017-03-26 10:17] LABS: BILIRUBIN,DIRECT 1.7 mg/dL (0.0-0.4)
--- NOTE | 2017-03-26 10:30 | RAD ---
Chest x-ray single frontal view History: Fever. Comparison: None available. Findings: Patchy increased markings at the left lung base which may represent infiltrate and or atelectasis. Mild venous congestion. Mild cardiomegaly. Surgical clips in the upper abdomen. Curvilinear radiopaque density projects over the right upper abdomen which may be represent tubing. Clinical correlation and or correlation with abdominal x-ray. Impression: Patchy increased markings at the left lung base which may represent infiltrate and or atelectasis. Mild venous congestion. Mild cardiomegaly. Surgical clips in the upper abdomen. Curvilinear radiopaque density projects over the right upper abdomen which may be represent tubing. Clinical correlation and or correlation with abdominal x-ray.
--- NOTE | 2017-03-26 13:07 | CP.PCM.PN ---
Subjective - Date & Time of Evaluation Date of Evaluation: 03/26/17 Time of Evaluation: 13:06 - Subjective Subjective: Improved temp and total bili decreased MRCP pending ISRA serosanguinous DC tomorrow if improvement continues Objective - Vital Signs/Intake and Output Vital Signs (last 24 hours): Temp Pulse Resp BP Pulse Ox 98.9 F 98 H 20 103/69 97 03/26/17 07:00 03/26/17 07:00 03/26/17 07:00 03/26/17 07:00 03/26/17 07:00 - Medications Medications: Current Medications Acetaminophen (Tylenol 325mg Tab) 650 mg PO Q6 PRN PRN Reason: Fever >100.4 F Last Admin: 03/25/17 14:57 Dose: 650 mg Hydromorphone HCl (Dilaudid) 2 mg IVP Q4H PRN PRN Reason: Pain, moderate (4-7) Last Admin: 03/26/17 10:01 Dose: 2 mg Potassium Chloride/Dextrose/Sod Cl (Potassium Chl 20 Meq In D5-1/2ns) 1,000 mls @ 100 mls/hr IV .Q10H [facility] Last Admin: 03/26/17 03:18 Dose: 100 mls/hr Piperacillin Sod/Tazobactam Sod (Zosyn 3.375 Gm Iv Premix) 3.375 gm in 50 mls @ 100 mls/hr IVPB Q6H [facility] Last Admin: 03/26/17 08:39 Dose: 100 mls/hr Ondansetron HCl (Zofran Inj) 4 mg IVP Q6H PRN PRN Reason: Nausea/Vomiting Last Admin: 03/24/17 10:59 Dose: 4 mg Pantoprazole Sodium (Protonix Inj) 40 mg IVP DAILY [facility] Last Admin: 03/26/17 10:00 Dose: 40 mg - Labs Labs: 03/26/17 07:20 03/26/17 07:20 PT 12.7 SECONDS (9.7-12.2) H 03/24/17 11:22 INR 1.1 03/24/17 11:22 APTT 33 SECONDS (21-34) 03/24/17 11:22
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
--- NOTE | 2017-03-26 13:21 | MRI ---
MRCP Indication: Status post lap adelso, elevated LFTs Technique: Multiplanar, multisequence MR images of the abdomen were obtained, including heavily T2 weighted MRCP images of the biliary system. Rotating maximum intensity projection images of the biliary system were generated. A total of 591 images were submitted for review. Comparison: Right upper quadrant ultrasound performed 03/23/17 Findings: Included lung bases demonstrate small pleural effusions and associated compressive consolidations. The patient is status postcholecystectomy. At least 3 tiny filling defects within the distal CBD measuring up to 4 mm compatible with calculi. The common bile duct measures approximately 8-9 mm in diameter. There is no intrahepatic biliary ductal dilatation. The pancreatic duct appears within normal limits of caliber. No filling defects are seen in the common bile duct or pancreatic duct. 8 mm and 4 mm left renal T2 hyperintensities, possibly cysts; cannot be further characterized in the absence of contrast. The liver, adrenal glands, kidneys, spleen, and pancreas appear unremarkable. No bulky abdominal lymphadenopathy is seen. No ascites. Limited visualization of the upper abdominal bowel loops demonstrates nonspecific loop of small bowel in a left upper quadrant. No acute osseous abnormality is detected. Impression: Status post cholecystectomy. At least 3 tiny filling defects within the distal CBD measuring up to 4 mm compatible with calculi. The common bile duct appears mildly dilated measuring approximately 8-9 mm in diameter. 8 mm and 4 mm left renal T2 hyperintensities, possibly cysts; cannot be further characterized in the absence of contrast. Included lung bases demonstrate small pleural effusions and associated compressive consolidations.
--- NOTE | 2017-03-26 14:59 | CP.PCM.PN ---
<Rukhsana Russo - Last Filed: 03/26/17 15:22> Subjective - Date & Time of Evaluation Date of Evaluation: 03/26/17 Time of Evaluation: 06:20 - Subjective Subjective: PGY 1 Medicine Note- Dr. Cai's service Pt seen and examined in no acute distress. Pt is s/p day 2 cholecystectomy. Patient states that his pain is a bit improved. He admits to passing gas but denies bowel movements. Patient is using incentive spirometry, ambulating and tolerating a diet. Patient denies subjective fevers or chills, nausea, vomiting , diarrhea, chest pain, palpitations or headaches at this time. Objective - Vital Signs/Intake and Output Vital Signs (last 24 hours): Temp Pulse Resp BP Pulse Ox 98.9 F 98 H 20 103/69 97 03/26/17 07:00 03/26/17 07:00 03/26/17 07:00 03/26/17 07:00 03/26/17 07:00 - Medications Medications: Current Medications Acetaminophen (Tylenol 325mg Tab) 650 mg PO Q6 PRN PRN Reason: Fever >100.4 F Last Admin: 03/25/17 14:57 Dose: 650 mg Hydromorphone HCl (Dilaudid) 2 mg IVP Q4H PRN PRN Reason: Pain, moderate (4-7) Last Admin: 03/26/17 14:08 Dose: 2 mg Potassium Chloride/Dextrose/Sod Cl (Potassium Chl 20 Meq In D5-1/2ns) 1,000 mls @ 100 mls/hr IV .Q10H [facility] Last Admin: 03/26/17 03:18 Dose: 100 mls/hr Piperacillin Sod/Tazobactam Sod (Zosyn 3.375 Gm Iv Premix) 3.375 gm in 50 mls @ 100 mls/hr IVPB Q6H [facility] Last Admin: 03/26/17 14:09 Dose: 100 mls/hr Ondansetron HCl (Zofran Inj) 4 mg IVP Q6H PRN PRN Reason: Nausea/Vomiting Last Admin: 03/24/17 10:59 Dose: 4 mg Pantoprazole Sodium (Protonix Inj) 40 mg IVP DAILY [facility] Last Admin: 03/26/17 10:00 Dose: 40 mg - Labs Labs: 03/26/17 07:20 03/26/17 07:20 PT 12.7 SECONDS (9.7-12.2) H 03/24/17 11:22 INR 1.1 03/24/17 11:22 APTT 33 SECONDS (21-34) 03/24/17 11:22 - Constitutional Appears: Non-toxic, No Acute Distress - Head Exam Head Exam: ATRAUMATIC, NORMAL INSPECTION, NORMOCEPHALIC - Eye Exam Eye Exam: EOMI, Normal appearance, PERRL Pupil Exam: NORMAL ACCOMODATION - ENT Exam ENT Exam: Mucous Membranes Moist - Neck Exam Neck Exam: Full ROM - Respiratory Exam Respiratory Exam: Clear to Ausculation Bilateral, NORMAL BREATHING PATTERN. absent: Wheezes - Cardiovascular Exam Cardiovascular Exam: REGULAR RHYTHM, +S1, +S2 - GI/Abdominal Exam GI & Abdominal Exam: Guarding, Soft, Tenderness (ruq), Normal Bowel Sounds. absent: Firm Additional comments: surgical site c/d/i with ISRA drain in place ~ 45cc of serosanguinous drainage noted - Extremities Exam Extremities Exam: Full ROM, Normal Capillary Refill, Normal Inspection - Back Exam Back Exam: Full ROM, NORMAL INSPECTION - Neurological Exam Neurological Exam: Alert, Awake, CN II-XII Intact, Oriented x3 Neuro motor strength exam: Left Upper Extremity: 5, Right Upper Extremity: 5, Left Lower Extremity: 5, Right Lower Extremity: 5 - Psychiatric Exam Psychiatric exam: Normal Affect, Normal Mood - Skin Skin Exam: Dry, Normal Color, Warm Assessment and Plan - Assessment and Plan (Free Text) Assessment: Choledocholithiasis * Patient with fever and uptrending LFTs and T. bili noted on post op day one- now downtrending; afebrile. * MRCP with filling defects noted * GI (Dr. Landrum) on the case. ERCP scheduled for tomorrow. Liquid diet for now. NPO past midnight. F/U additional recommendations * ERCP scheduled for tmrw in the AM s/p Cholecystectomy * General surgery (Dr. Rivera) on the case- F/U recommendations * Infectious disease (Dr. Vila) on the case-F/U recommendations * HIDA (03/23/17): nonvisualization of cystic duct, common duct, small bowel at 60 minutes. * Abdominal US (03/23/17): gallstones and sludge with mildly prominent common duct. Not tender over the gallbladder * Ordered for MRCP per surgery to r/o CBD and recommended for infectious disease for persistent fever. Filing defects noted and thus ERCP scheduled for tmrw. * Rocephin discontinued; Started on Zosyn 3.75 IV Q 6hr per ID * Dilaudid 2mg IVQ 4PRN pain * Tylenol 650mg PO Q 6PRN T>100.4F * D51/2NS 100cc/hr Postoperative Fever * Resolved * Infectious disease (Dr. Vila) F/U * Ordered for chest xray. F/U UA and UC * Tylenol 650mg PO Q 6PRN T>100.4F * Rocephin discontinued; Started on Zosyn 3.75 IV Q 6hr per ID * Incentive spirometer Hx of herniated discs * Dilaudid 2mg Q4 PRN moderate pain * Patient noted he was on narcotic pain prns per his PMD to relieve his back pain Transaminitis * Downtrending * Cont to monitor Abnormal UA * Repeat UA. F/U UC PPX * NPO * SCDs. Encourage ambulation as tolerated. * Low risk for venous thrombotic event as patient is ambulating. * Protonix 40mg ivp daily * Incentive Spirometer <Mariel Cai V - Last Filed: 03/26/17 17:48> Objective - Vital Signs/Intake and Output Vital Signs (last 24 hours): Temp Pulse Resp BP Pulse Ox 99.1 F 104 H 20 107/70 95 03/26/17 15:24 03/26/17 15:24 03/26/17 15:24 03/26/17 15:24 03/26/17 15:24 Intake and Output: 03/26/17 03/26/17 06:59 18:59 Output Total 30 Balance -30 - Medications Medications: Current Medications Acetaminophen (Tylenol 325mg Tab) 650 mg PO Q6 PRN PRN Reason: Fever >100.4 F Last Admin: 03/25/17 14:57 Dose: 650 mg Hydromorphone HCl (Dilaudid) 2 mg IVP Q4H PRN PRN Reason: Pain, moderate (4-7) Last Admin: 03/26/17 14:08 Dose: 2 mg Potassium Chloride/Dextrose/Sod Cl (Potassium Chl 20 Meq In D5-1/2ns) 1,000 mls @ 100 mls/hr IV .Q10H [facility] Last Admin: 03/26/17 15:30 Dose: Not Given Piperacillin Sod/Tazobactam Sod (Zosyn 3.375 Gm Iv Premix) 3.375 gm in 50 mls @ 100 mls/hr IVPB Q6H [facility] Last Admin: 03/26/17 14:09 Dose: 100 mls/hr Ondansetron HCl (Zofran Inj) 4 mg IVP Q6H PRN PRN Reason: Nausea/Vomiting Last Admin: 03/24/17 10:59 Dose: 4 mg Pantoprazole Sodium (Protonix Inj) 40 mg IVP DAILY [facility] Last Admin: 03/26/17 10:00 Dose: 40 mg - Labs Labs: 03/26/17 07:20 03/26/17 07:20 PT 12.7 SECONDS (9.7-12.2) H 03/24/17 11:22 INR 1.1 03/24/17 11:22 APTT 33 SECONDS (21-34) 03/24/17 11:22 Attending/Attestation - Attestation I have personally seen and examined this patient.: Yes I have fully participated in the care of the patient.: Yes I have reviewed all pertinent clinical information, including history, physical exam and plan: Yes Notes (Text): Patient seen, examined and case discussed with day-time resident. Patient seen this morning. Patient reporting mild abdominal pain and flatus. Patient completed MRCP this morning. GI consult on the case-->help appreciated Going for ERCP tomorrow to evaluate given CBD dilatation 8-9mm in light of abdominal pain Pending blood and urine cultures results. Assessment/Plan 1) Acute cholecystits; Cholelithiasis * General surgery (Dr. Field) on the case-->help appreciated * Infectious disease (Dr. Vila) on the case-->help appreciated * GI (Dr. Landrum) on the case-->help appreciated * HIDA (03/23/17): nonvisualization of cystic duct, common duct, small bowel at 60 minutes. Department was informated fate delayed imaging was not necessary at the patient was going to the OR * Abdominal US (03/23/17): gallstones and sludge with mildly prominent common duct. Not tender over the gallbladder * MRCP (03/26/17): status post cholecystectomy, at least 3 tiny filling defects within the distal CBD measuring up to 4mm compatible wtih calculi. Common bile duct appears mildy dilated measuring 8-9mm. 8 mm and 4mm left renal T2 hyperintensities, possibly cysts, cannot be further characterized in the absence of contrast. lung bases demonstrate small pleural effusions and associated compressive consolidations * Going for ERCP/EUS tomorrow in AM * Started on Zosyn 3.75 IV Q 6hr per ID * Dilaudid 2mg IVQ 4PRN pain * Tylenol 650mg PO Q 6PRN T>100.4F * D51/2NS 100cc/hr 2) Postoperative Fever * Infectious disease (Dr. Vila) on the case-->help appreciated * Chest xray (03/25/17): patchy increased markings at the left lung base which may represent infiltrate and/or atelectasis, mild venous congestion, mild cardiomeglay, surgical clips in the upper abdomen * Tylenol 650mg PO Q 6PRN T>100.4F * Started on Zosyn 3.75 IV Q 6hr per ID (Active since 03/15/17) * Advised for incentive spirometer * Blood and urine culture received awaiting results * Tmax: 101.7 F (yesterday) 3) Hx of herniated discs * Dilaudid 2mg Q4 PRN moderate pain * Patient noted he was on narcotic pain prns per his PMD to relieve his back pain 4) Hypokalemia * replete 5) Transaminitis * Downtrending * MRCP (03/26/17): status post cholecystectomy, at least 3 tiny filling defects within the distal CBD measuring up to 4mm compatible wtih calculi. Common bile duct appears mildy dilated measuring 8-9mm. 8 mm and 4mm left renal T2 hyperintensities, possibly cysts, cannot be further characterized in the absence of contrast. lung bases demonstrate small pleural effusions and associated compressive consolidations * Hepatitis panel negative 6) Hematuria * repeat UA * urine culture received awaiting results 7) PPX * NPO * SCDs. Encourage ambulation as tolerated. * Protonix 40mg ivp daily * Incentive Spirometer * Hold anticoagulation at this time
[2017-03-26 15:31] LABS: RBC URINE 23 /hpf (0-3); URINE BILIRUBIN NEGATIVE (NEGATIVE); URINE BLOOD 1+ (NEGATIVE); URINE COLOR Amber (YELLOW); URINE GLUCOSE (UA) NORMAL (Normal); URINE KETONE NEGATIVE (NEGATIVE); URINE LEUKOCYTE ESTERASE NEG Leu/uL (Negative); URINE PROTEIN NEGATIVE (NEGATIVE); WBC URINE 1 /hpf (0-5)
[2017-03-26] MEDS ORDERED: POLYETHYLENE GLYCOL 3350 17 GM/Dose PACKET PO ONE (16:43)
--- NOTE | 2017-03-26 18:24 | CP.PCM.PN ---
Subjective - Date & Time of Evaluation Date of Evaluation: 03/26/17 Time of Evaluation: 08:00 - Subjective Subjective: discussed on rounds lft's trending down for egd in am Objective - Vital Signs/Intake and Output Vital Signs (last 24 hours): Temp Pulse Resp BP Pulse Ox 99.1 F 104 H 20 107/70 95 03/26/17 15:24 03/26/17 15:24 03/26/17 15:24 03/26/17 15:24 03/26/17 15:24 Intake and Output: 03/26/17 03/26/17 06:59 18:59 Output Total 30 Balance -30 - Medications Medications: Current Medications Acetaminophen (Tylenol 325mg Tab) 650 mg PO Q6 PRN PRN Reason: Fever >100.4 F Last Admin: 03/25/17 14:57 Dose: 650 mg Hydromorphone HCl (Dilaudid) 2 mg IVP Q4H PRN PRN Reason: Pain, moderate (4-7) Last Admin: 03/26/17 18:21 Dose: 2 mg Potassium Chloride/Dextrose/Sod Cl (Potassium Chl 20 Meq In D5-1/2ns) 1,000 mls @ 100 mls/hr IV .Q10H [facility] Last Admin: 03/26/17 15:30 Dose: Not Given Piperacillin Sod/Tazobactam Sod (Zosyn 3.375 Gm Iv Premix) 3.375 gm in 50 mls @ 100 mls/hr IVPB Q6H [facility] Last Admin: 03/26/17 14:09 Dose: 100 mls/hr Ondansetron HCl (Zofran Inj) 4 mg IVP Q6H PRN PRN Reason: Nausea/Vomiting Last Admin: 03/24/17 10:59 Dose: 4 mg Pantoprazole Sodium (Protonix Inj) 40 mg IVP DAILY [facility] Last Admin: 03/26/17 10:00 Dose: 40 mg - Labs Labs: 03/26/17 07:20 03/26/17 07:20 PT 12.7 SECONDS (9.7-12.2) H 03/24/17 11:22 INR 1.1 03/24/17 11:22 APTT 33 SECONDS (21-34) 03/24/17 11:22 - Constitutional Appears: Non-toxic, Chronically Ill - Head Exam Head Exam: NORMOCEPHALIC - Eye Exam Eye Exam: absent: Scleral icterus - ENT Exam ENT Exam: Mucous Membranes Dry, Normal External Ear Exam - Respiratory Exam Respiratory Exam: Decreased Breath Sounds, Clear to Ausculation Bilateral - Cardiovascular Exam Cardiovascular Exam: REGULAR RHYTHM - GI/Abdominal Exam GI & Abdominal Exam: Distended, Soft - Rectal Exam Rectal Exam: Deferred - Back Exam Back Exam: absent: CVA tenderness (L), CVA tenderness (R) - Neurological Exam Neurological Exam: Alert, Awake, Oriented x3 - Psychiatric Exam Psychiatric exam: Normal Mood - Skin Skin Exam: Dry Assessment and Plan (1) Fever Status: Acute (2) Fever Status: Acute (3) Gallstones Status: Acute (4) Leukocytosis Status: Acute (5) Right upper quadrant abdominal pain Status: Acute
[2017-03-27] MEDS: Piperacill/Tazo 3.375gm in Dex 3.375 GM/50 ML BAG IVPB SCH ×4 (01:19→20:10)
[2017-03-27] MEDS: Potassium Ch 20mEq in D5-1/2NS 1,000 ML IV SCH ×2 (05:45→20:07)
--- NOTE | 2017-03-27 07:11 | CP.PCM.PN ---
Addendum entered and electronically signed by Ramana Light DO 03/27/17 20:20: EGD results: Normal esophagus. Z-line regular. Gastritis, biopsied. Normal duodenal bulb and 2nd part duodenum. Perform ERCP. ERCP: Filling defect consistent with a stone on cholangiogram. Entire main bile duct mildly dilated. Biliary tree swept. Choledocolithiasis. - Reccs: ADAT, Check liver enzymes (AST/ALT/Alk Phos, Bilirubin), Original Note: <Ramana Light - Last Filed: 03/27/17 20:09> Subjective - Date & Time of Evaluation Date of Evaluation: 03/27/17 Time of Evaluation: 07:11 - Subjective Subjective: PGY 1 Medicine Note- Dr. Cai's service Pt seen and examined in no acute distress. Pt is s/p day 3 cholecystectomy. Pt is NPO for ERCP this AM. He states continued RUQ abdominal pain, that is the same in intensity since yesterday. He denies episodes of N/V, admits passing gas , but denies bowel movement "since Thursday." He states he is able to ambulate without difficulty. Patient denies subjective fevers or chills, chest pain, palpitations or headaches at this time. Objective - Vital Signs/Intake and Output Vital Signs (last 24 hours): Temp Pulse Resp BP Pulse Ox 98.2 F 107 H 20 123/80 95 03/26/17 23:15 03/26/17 23:15 03/26/17 23:15 03/26/17 23:15 03/26/17 23:15 Intake and Output: 03/27/17 03/27/17 06:59 18:59 Intake Total 1100 Output Total 25 Balance 1075 - Medications Medications: Current Medications Acetaminophen (Tylenol 325mg Tab) 650 mg PO Q6 PRN PRN Reason: Fever >100.4 F Last Admin: 03/25/17 14:57 Dose: 650 mg Hydromorphone HCl (Dilaudid) 2 mg IVP Q4H PRN PRN Reason: Pain, moderate (4-7) Last Admin: 03/27/17 05:47 Dose: 2 mg Potassium Chloride/Dextrose/Sod Cl (Potassium Chl 20 Meq In D5-1/2ns) 1,000 mls @ 100 mls/hr IV .Q10H [facility] Last Admin: 03/27/17 05:45 Dose: 100 mls/hr Piperacillin Sod/Tazobactam Sod (Zosyn 3.375 Gm Iv Premix) 3.375 gm in 50 mls @ 100 mls/hr IVPB Q6H [facility] Last Admin: 03/27/17 01:19 Dose: 100 mls/hr Ondansetron HCl (Zofran Inj) 4 mg IVP Q6H PRN PRN Reason: Nausea/Vomiting Last Admin: 03/24/17 10:59 Dose: 4 mg Pantoprazole Sodium (Protonix Inj) 40 mg IVP DAILY [facility] Last Admin: 03/26/17 10:00 Dose: 40 mg - Labs Labs: 03/26/17 07:20 03/26/17 07:20 PT 12.7 SECONDS (9.7-12.2) H 03/24/17 11:22 INR 1.1 03/24/17 11:22 APTT 33 SECONDS (21-34) 03/24/17 11:22 - Additional Findings Additional findings: - Constitutional Appears: Non-toxic, No Acute Distress - Head Exam Head Exam: ATRAUMATIC, NORMAL INSPECTION, NORMOCEPHALIC - Eye Exam Eye Exam: EOMI, Normal appearance, PERRL Pupil Exam: NORMAL ACCOMODATION - ENT Exam ENT Exam: Mucous Membranes Moist - Neck Exam Neck Exam: Full ROM - Respiratory Exam Respiratory Exam: Clear to Ausculation Bilateral, NORMAL BREATHING PATTERN. absent: Wheezes - Cardiovascular Exam Cardiovascular Exam: REGULAR RHYTHM, +S1, +S2 - GI/Abdominal Exam GI & Abdominal Exam: Guarding, Soft, Tenderness (ruq), Normal Bowel Sounds. absent: Firm Additional comments: surgical site c/d/i with ISRA drain in place - Extremities Exam Extremities Exam: Full ROM, Normal Capillary Refill, Normal Inspection - Back Exam Back Exam: Full ROM, NORMAL INSPECTION - Neurological Exam Neurological Exam: Alert, Awake, CN II-XII Intact, Oriented x3 - Psychiatric Exam Psychiatric exam: Normal Affect, Normal Mood - Skin Skin Exam: Dry, Normal Color, Warm Assessment and Plan - Assessment and Plan (Free Text) Plan: Choledocholithiasis * Patient with fever and uptrending LFTs and T. bili noted on post op day one- now downtrending; afebrile. * MRCP with filling defects noted * GI (Dr. Landrum) on the case. * ERCP today s/p Cholecystectomy * General surgery (Dr. Rivera) on the case- F/U recommendations * Infectious disease (Dr. Vila) on the case-F/U recommendations * HIDA (03/23/17): nonvisualization of cystic duct, common duct, small bowel at 60 minutes. * Abdominal US (03/23/17): Gallstones and sludge with mildly prominent common duct. (see full report) * Continued on Zosyn 3.75 IV Q 6hr per ID * Dilaudid 2mg IVQ 4PRN pain * Tylenol 650mg PO Q 6PRN T>100.4F * D51/2NS 100cc/hr Postoperative Fever * Resolved * Infectious disease (Dr. Vila) F/U * CXR (03/25/17): Markings at LL base, infiltrate vs atelectasis. Mild venous congestoin. Mild cardiomegaly. (see full report) * UA (03/26/17): 1+ blood, LE & nitrate negative * Urine Cx (03/26/17): No growth * Blood cx (03/26/17): no growth x 24 hrs, x 2 * Tylenol 650mg PO Q 6PRN T>100.4F * Rocephin discontinued; Started on Zosyn 3.75 IV Q 6hr per ID * Incentive spirometer Hx of herniated discs * Dilaudid 2mg Q4 PRN moderate pain * Patient noted he was on narcotic pain prns per his PMD to relieve his back pain Transaminitis * Downtrending * Cont to monitor Abnormal UA * UA (03/26/17): 1+ blood, LE & nitrate negative * Urine Cx (03/26/17): No growth PPX * NPO * SCDs. Encourage ambulation as tolerated. * Low risk for venous thrombotic event as patient is ambulating. * Protonix 40mg ivp daily * Incentive Spirometer DW DR. Trell Light, PGY-1 <Mariel Cai V - Last Filed: 03/30/17 16:11> Objective - Vital Signs/Intake and Output Vital Signs (last 24 hours): Temp Pulse Resp BP Pulse Ox 98.1 F 92 H 20 106/68 98 03/30/17 15:40 03/30/17 15:40 03/30/17 15:40 03/30/17 15:40 03/30/17 15:40 Intake and Output: 03/30/17 03/30/17 06:59 18:59 Intake Total 640 Output Total 2 Balance 638 - Medications Medications: Current Medications Acetaminophen (Tylenol 325mg Tab) 650 mg PO Q6 PRN PRN Reason: Fever >100.4 F Last Admin: 03/25/17 14:57 Dose: 650 mg Benzocaine/Menthol (Cepacol Sore Throat) 1 pilar MT Q1 PRN PRN Reason: Sore Throat Last Admin: 03/30/17 01:14 Dose: 1 pilar Docusate Sodium (Colace) 100 mg PO BID [facility] Last Admin: 03/30/17 12:15 Dose: 100 mg Piperacillin Sod/Tazobactam Sod (Zosyn 3.375 Gm Iv Premix) 3.375 gm in 50 mls @ 100 mls/hr IVPB Q6H [facility] Last Admin: 03/30/17 13:25 Dose: 100 mls/hr Lactated Ringer's (Lactated Ringer's) 1,000 mls @ 100 mls/hr IV .Q10H [facility] Ibuprofen (Motrin Tab) 400 mg PO BID PRN PRN Reason: Pain, Mild (1-3) Ondansetron HCl (Zofran Inj) 4 mg IVP Q6H PRN PRN Reason: Nausea/Vomiting Last Admin: 03/24/17 10:59 Dose: 4 mg Oxycodone/Acetaminophen (Percocet 5/325 Mg Tab) 2 tab PO Q4H PRN PRN Reason: Pain, moderate (4-7) Stop: 03/31/17 11:12 Last Admin: 03/30/17 12:14 Dose: 2 tab Pantoprazole Sodium (Protonix Inj) 40 mg IVP DAILY [facility] Last Admin: 03/30/17 12:14 Dose: 40 mg - Labs Labs: 03/30/17 07:19 03/30/17 07:19 PT 12.7 SECONDS (9.7-12.2) H 03/24/17 11:22 INR 1.1 03/24/17 11:22 APTT 33 SECONDS (21-34) 03/24/17 11:22 Attending/Attestation - Attestation I have personally seen and examined this patient.: Yes I have fully participated in the care of the patient.: Yes I have reviewed all pertinent clinical information, including history, physical exam and plan: Yes Notes (Text): This is late computer entry for 03/27/17. Patient seen, examined, and case discussed with day-time resident. Patient went for ERCP today with GI. Patient post-ERCP and started on diet per GI. Patient reports minimal RUQ pain. Assessment/Plan 1) Choledocholithiasis * GI (Dr. Landrum) on the case-->help appreciated * MRCP (03/26/17): status post cholecystectomy, at least 3 tiny filling defects within the distal CBD measuring up to 4mm compatible wtih calculi. Common bile duct appears mildy dilated measuring 8-9mm. 8 mm and 4mm left renal T2 hyperintensities, possibly cysts, cannot be further characterized in the absence of contrast. lung bases demonstrate small pleural effusions and associated compressive consolidations * Patient with fever and uptrending LFTs and T. bili noted on post op day one- now downtrending; afebrile. * GI (Dr. Landrum) on the case. * EGD results: Normal esophagus. Z-line regular. Gastritis, biopsied. Normal duodenal bulb and 2nd part duodenum. Perform ERCP. * ERCP: Filling defect consistent with a stone on cholangiogram. Entire main bile duct mildly dilated. Biliary tree swept. Choledocolithiasis. - Reccs: ADAT, Check liver enzymes (AST/ALT/Alk Phos, Bilirubin), 2) Acute cholecystitis * General surgery (Dr. Field) on the case-->help appreciated-->preop/intraop/ postop per surgery * Infectious disease (Dr. Vila) on the case-->help appreciated * GI (Dr. Landrum) on the case-->help appreciated * Abdominal US (03/23/17): gallstones and sludge with mildly prominent common duct. Not tender over the gallbladder * HIDA (03/23/17): nonvisualization of cystic duct, common duct, small bowel at 60 minutes. Department was informated fate delayed imaging was not necessary at the patient was going to the OR * 03/24/17 Lap cholecystectomy with surgery * MRCP (03/26/17): status post cholecystectomy, at least 3 tiny filling defects within the distal CBD measuring up to 4mm compatible wtih calculi. Common bile duct appears mildy dilated measuring 8-9mm. 8 mm and 4mm left renal T2 hyperintensities, possibly cysts, cannot be further characterized in the absence of contrast. lung bases demonstrate small pleural effusions and associated compressive consolidations * Started on Zosyn 3.75 IV Q 6hr per ID * Dilaudid 2mg IVQ 4PRN pain * Tylenol 650mg PO Q 6PRN T>100.4F * D51/2NS 100cc/hr * EGD results: Normal esophagus. Z-line regular. Gastritis, biopsied. Normal duodenal bulb and 2nd part duodenum. Perform ERCP. * ERCP: Filling defect consistent with a stone on cholangiogram. Entire main bile duct mildly dilated. Biliary tree swept. Choledocolithiasis. - Reccs: ADAT, Check liver enzymes (AST/ALT/Alk Phos, Bilirubin), 3) Postoperative Fever * Infectious disease (Dr. Vila) on the case-->help appreciated * Chest xray (03/25/17): patchy increased markings at the left lung base which may represent infiltrate and/or atelectasis, mild venous congestion, mild cardiomegaly, surgical clips in the upper abdomen * Tylenol 650mg PO Q 6PRN T>100.4F * Started on Zosyn 3.75 IV Q 6hr per ID (Active since 03/15/17) * Advised for incentive spirometer * Urine culture: no growth * Blood culture: no growth x 24 hrs, x 2 4) Hx of herniated discs * Dilaudid 2mg Q4 PRN moderate pain * Patient noted he was on narcotic pain prns per his PMD to relieve his back pain 5) Hypokalemia * replete 6) Transaminitis * Downtrending * MRCP (03/26/17): status post cholecystectomy, at least 3 tiny filling defects within the distal CBD measuring up to 4mm compatible wtih calculi. Common bile duct appears mildy dilated measuring 8-9mm. 8 mm and 4mm left renal T2 hyperintensities, possibly cysts, cannot be further characterized in the absence of contrast. lung bases demonstrate small pleural effusions and associated compressive consolidations * Hepatitis panel negative 7) Hematuria * repeat UA * urine culture: no growth 8) PPX * Diet to be advanced per GI * SCDs. Encourage ambulation as tolerated. * Protonix 40mg ivp daily * Incentive Spirometer * Hold anticoagulation at this time
[2017-03-27 07:50] LABS: CHLORIDE 98 mmol/L (98-107); SODIUM 137 mmol/L (132-148)
[2017-03-27 07:52] LABS: GFR AFRICAN-AMERICAN > 60
[2017-03-27 07:53] LABS: ALKALINE PHOSPHATASE 200 U/L (38-126); ALT/SGPT 140 U/L (21-72); AST/SGOT 51 U/L (17-59); BILIRUBIN,TOTAL 1.5 mg/dL (0.2-1.3); BLOOD UREA NITROGEN 4 mg/dL (9-20); CALCIUM 8.2 mg/dl (8.6-10.4); CARBON DIOXIDE 30 mmol/L (22-30); GLUCOSE,RANDOM 99 mg/dL (75-110); PHOSPHOROUS 3.5 mg/dL (2.5-4.5); TOTAL PROTEIN 6.5 g/dL (6.3-8.3)
[2017-03-27 07:54] LABS: MAGNESIUM 2.1 mg/dL (1.6-2.3)
[2017-03-27 07:58] LABS: BASO % 0.2 % (0.0-2.0); EOS # 0.2 K/uL (0.0-0.7); EOS % 1.9 % (0.0-4.0); HEMATOCRIT 31.8 % (35.0-51.0); LYMPH # 1.2 K/uL (1.0-4.3); LYMPH % 13.2 % (20.0-40.0); MEAN CELL VOLUME 80.5 fL (80.0-94.0); MEAN CORPUSCULAR HEMOGLOBIN 26.8 pg (27.0-31.0); MEAN CORPUSCULAR HGB CONC 33.3 g/dL (33.0-37.0); MEAN PLATELET VOLUME 7.8 fL (7.2-11.7); MONO # 0.8 K/uL (0.0-0.8); MONO % 9.2 % (0.0-10.0); NRBC % 0.1 % (0.0-2.0); RED CELL DISTRIBUTION WIDTH 13.1 % (11.5-14.5); WHITE BLOOD COUNT 9.1 K/uL (4.8-10.8)
--- NOTE | 2017-03-27 14:32 | CP.PCM.PN ---
Subjective - Date & Time of Evaluation Date of Evaluation: 03/27/17 Time of Evaluation: 14:31 - Subjective Subjective: ERCP + for CBD stones x 3 for ERCP Today cond otherwise improving Objective - Vital Signs/Intake and Output Vital Signs (last 24 hours): Temp Pulse Resp BP Pulse Ox 98.4 F 93 H 20 104/67 95 03/27/17 07:52 03/27/17 07:52 03/27/17 07:52 03/27/17 07:52 03/27/17 07:52 Intake and Output: 03/27/17 03/27/17 06:59 18:59 Intake Total 1100 Output Total 25 Balance 1075 - Medications Medications: Current Medications Acetaminophen (Tylenol 325mg Tab) 650 mg PO Q6 PRN PRN Reason: Fever >100.4 F Last Admin: 03/25/17 14:57 Dose: 650 mg Hydromorphone HCl (Dilaudid) 2 mg IVP Q4H PRN PRN Reason: Pain, moderate (4-7) Last Admin: 03/27/17 09:57 Dose: 2 mg Potassium Chloride/Dextrose/Sod Cl (Potassium Chl 20 Meq In D5-1/2ns) 1,000 mls @ 100 mls/hr IV .Q10H [facility] Last Admin: 03/27/17 05:45 Dose: 100 mls/hr Piperacillin Sod/Tazobactam Sod (Zosyn 3.375 Gm Iv Premix) 3.375 gm in 50 mls @ 100 mls/hr IVPB Q6H [facility] Last Admin: 03/27/17 08:41 Dose: 100 mls/hr Ondansetron HCl (Zofran Inj) 4 mg IVP Q6H PRN PRN Reason: Nausea/Vomiting Last Admin: 03/24/17 10:59 Dose: 4 mg Pantoprazole Sodium (Protonix Inj) 40 mg IVP DAILY [facility] Last Admin: 03/27/17 09:57 Dose: 40 mg - Labs Labs: 03/27/17 07:28 03/27/17 07:28 PT 12.7 SECONDS (9.7-12.2) H 03/24/17 11:22 INR 1.1 03/24/17 11:22 APTT 33 SECONDS (21-34) 03/24/17 11:22
[2017-03-27] MEDS ORDERED: Indomethacin 50 MG Suppository PR ONE (14:52)
--- NOTE | 2017-03-27 15:22 | CP.PCM.PN ---
Subjective - Date & Time of Evaluation Date of Evaluation: 03/27/17 Time of Evaluation: 08:00 - Subjective Subjective: ERCP NOTED IV RX IN PROGRESS Objective - Vital Signs/Intake and Output Vital Signs (last 24 hours): Temp Pulse Resp BP Pulse Ox 98.4 F 93 H 20 104/67 95 03/27/17 07:52 03/27/17 07:52 03/27/17 07:52 03/27/17 07:52 03/27/17 07:52 Intake and Output: 03/27/17 03/27/17 06:59 18:59 Intake Total 1100 Output Total 25 Balance 1075 - Medications Medications: Current Medications Acetaminophen (Tylenol 325mg Tab) 650 mg PO Q6 PRN PRN Reason: Fever >100.4 F Last Admin: 03/25/17 14:57 Dose: 650 mg Hydromorphone HCl (Dilaudid) 2 mg IVP Q4H PRN PRN Reason: Pain, moderate (4-7) Last Admin: 03/27/17 09:57 Dose: 2 mg Potassium Chloride/Dextrose/Sod Cl (Potassium Chl 20 Meq In D5-1/2ns) 1,000 mls @ 100 mls/hr IV .Q10H [facility] Last Admin: 03/27/17 05:45 Dose: 100 mls/hr Piperacillin Sod/Tazobactam Sod (Zosyn 3.375 Gm Iv Premix) 3.375 gm in 50 mls @ 100 mls/hr IVPB Q6H [facility] Last Admin: 03/27/17 08:41 Dose: 100 mls/hr Ondansetron HCl (Zofran Inj) 4 mg IVP Q6H PRN PRN Reason: Nausea/Vomiting Last Admin: 03/24/17 10:59 Dose: 4 mg Pantoprazole Sodium (Protonix Inj) 40 mg IVP DAILY [facility] Last Admin: 03/27/17 09:57 Dose: 40 mg - Labs Labs: 03/27/17 07:28 03/27/17 07:28 PT 12.7 SECONDS (9.7-12.2) H 03/24/17 11:22 INR 1.1 03/24/17 11:22 APTT 33 SECONDS (21-34) 03/24/17 11:22 - Constitutional Appears: Non-toxic, Chronically Ill - Head Exam Head Exam: NORMOCEPHALIC - Eye Exam Eye Exam: PERRL. absent: Scleral icterus - ENT Exam ENT Exam: Mucous Membranes Dry, Normal External Ear Exam - Neck Exam Neck Exam: absent: Lymphadenopathy - Respiratory Exam Respiratory Exam: Decreased Breath Sounds, Clear to Ausculation Bilateral - Cardiovascular Exam Cardiovascular Exam: REGULAR RHYTHM, +S1, +S2 - GI/Abdominal Exam GI & Abdominal Exam: Distended, Soft Assessment and Plan (1) Fever Status: Acute (2) Fever Status: Acute (3) Gallstones Status: Acute (4) Leukocytosis Status: Acute (5) Right upper quadrant abdominal pain Status: Acute
[2017-03-27] MEDS ORDERED: Lactated Ringer's 1,000 ML IV ONE (16:01)
[2017-03-27] MEDS: HYDROmorphone 0.5 mg/0.5 ml ISec IVP PRN ×2 (16:06→16:09)
[2017-03-27] MEDS ORDERED: Lactated Ringer's 1,000 ML IV SCH (16:15)
[2017-03-28] MEDS: Piperacill/Tazo 3.375gm in Dex 3.375 GM/50 ML BAG IVPB SCH ×4 (01:15→19:48)
[2017-03-28] MEDS: Potassium Ch 20mEq in D5-1/2NS 1,000 ML IV SCH ×2 (05:40→16:47)
[2017-03-28 06:54] LABS: BASO % 0.4 % (0.0-2.0); EOS # 0.2 K/uL (0.0-0.7); EOS % 3.4 % (0.0-4.0); LYMPH # 1.6 K/uL (1.0-4.3); LYMPH % 21.5 % (20.0-40.0); MEAN CELL VOLUME 78.2 fL (80.0-94.0); MEAN CORPUSCULAR HEMOGLOBIN 25.4 pg (27.0-31.0); MEAN CORPUSCULAR HGB CONC 32.4 g/dL (33.0-37.0); MEAN PLATELET VOLUME 7.6 fL (7.2-11.7); MONO # 0.7 K/uL (0.0-0.8); MONO % 9.8 % (0.0-10.0); RED CELL DISTRIBUTION WIDTH 12.6 % (11.5-14.5); WHITE BLOOD COUNT 7.3 K/uL (4.8-10.8)
[2017-03-28 07:13] LABS: CHLORIDE 98 mmol/L (98-107)
[2017-03-28 07:14] LABS: SODIUM 136 mmol/L (132-148)
[2017-03-28 07:15] LABS: POTASSIUM 3.9 mmol/L (3.6-5.2)
[2017-03-28 07:17] LABS: ALKALINE PHOSPHATASE 190 U/L (38-126); ALT/SGPT 103 U/L (21-72); AST/SGOT 30 U/L (17-59); BLOOD UREA NITROGEN 5 mg/dL (9-20); CARBON DIOXIDE 29 mmol/L (22-30); GFR AFRICAN-AMERICAN > 60; GLUCOSE,RANDOM 114 mg/dL (75-110); TOTAL PROTEIN 6.4 g/dL (6.3-8.3)
[2017-03-28 07:18] LABS: CALCIUM 8.2 mg/dl (8.6-10.4); MAGNESIUM 2.2 mg/dL (1.6-2.3)
[2017-03-28 07:19] LABS: ALB/GLOB RATIO 0.9 (1.0-2.1)
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
[2017-03-28] MEDS ORDERED: Oxycodone/Acetaminophen 5/325 mg Tab PO PRN (11:11)
[2017-03-28] MEDS: Docusate-Senna 50 mg-8.6 mg Tab PO SCH ×2 (12:01→17:46)
[2017-03-28] MEDS ORDERED: Oxycodone/Acetaminophen 5/325 mg Tab PO ONE (13:23)
--- NOTE | 2017-03-28 14:06 | CP.PCM.PN ---
Subjective - Date & Time of Evaluation Date of Evaluation: 03/28/17 Time of Evaluation: 09:10 - Subjective Subjective: PGY1 Progress note for Dr. Mack Patient seen and examined. Patient states his pain is improved after ERCP yesterday. Patient tolerated CLD for breakfast. Patient denies BM but reports flatus. Objective - Vital Signs/Intake and Output Vital Signs (last 24 hours): Temp Pulse Resp BP Pulse Ox 97.5 F L 77 20 100/61 95 03/28/17 08:00 03/28/17 08:00 03/28/17 08:00 03/28/17 08:00 03/28/17 08:00 Intake and Output: 03/28/17 03/28/17 06:59 18:59 Intake Total 850 Output Total 8 Balance 842 - Medications Medications: Current Medications Acetaminophen (Tylenol 325mg Tab) 650 mg PO Q6 PRN PRN Reason: Fever >100.4 F Last Admin: 03/25/17 14:57 Dose: 650 mg Docusate Sodium (Colace) 100 mg PO BID [facility] Last Admin: 03/28/17 12:01 Dose: 100 mg Potassium Chloride/Dextrose/Sod Cl (Potassium Chl 20 Meq In D5-1/2ns) 1,000 mls @ 100 mls/hr IV .Q10H [facility] Last Admin: 03/28/17 05:40 Dose: 100 mls/hr Piperacillin Sod/Tazobactam Sod (Zosyn 3.375 Gm Iv Premix) 3.375 gm in 50 mls @ 100 mls/hr IVPB Q6H [facility] Last Admin: 03/28/17 13:35 Dose: 100 mls/hr Lactated Ringer's (Lactated Ringer's) 1,000 mls @ 100 mls/hr IV .Q10H [facility] Ibuprofen (Motrin Tab) 400 mg PO BID PRN PRN Reason: Pain, Mild (1-3) Ondansetron HCl (Zofran Inj) 4 mg IVP Q6H PRN PRN Reason: Nausea/Vomiting Last Admin: 03/24/17 10:59 Dose: 4 mg Oxycodone/Acetaminophen (Percocet 5/325 Mg Tab) 1 tab PO Q4H PRN PRN Reason: Pain, moderate (4-7) Stop: 03/31/17 11:12 Pantoprazole Sodium (Protonix Inj) 40 mg IVP DAILY [facility] Last Admin: 03/28/17 09:16 Dose: 40 mg Senna/Docusate Sodium (Senokot S 50 Mg-8.6 Mg) 1 tab PO BID [facility] Stop: 03/28/17 18:01 Last Admin: 03/28/17 12:01 Dose: 1 tab - Labs Labs: 03/28/17 06:51 03/28/17 06:47 PT 12.7 SECONDS (9.7-12.2) H 03/24/17 11:22 INR 1.1 03/24/17 11:22 APTT 33 SECONDS (21-34) 03/24/17 11:22 - Constitutional Appears: Non-toxic, No Acute Distress - Head Exam Head Exam: ATRAUMATIC, NORMOCEPHALIC - Eye Exam Eye Exam: EOMI - ENT Exam ENT Exam: Mucous Membranes Moist - Respiratory Exam Respiratory Exam: Clear to Ausculation Bilateral, NORMAL BREATHING PATTERN. absent: Respiratory Distress - Cardiovascular Exam Cardiovascular Exam: +S1, +S2 - GI/Abdominal Exam GI & Abdominal Exam: Soft, Tenderness (Right side around drain, ISRA drain with serosanguinous drainage), Normal Bowel Sounds - Extremities Exam Extremities Exam: absent: Pedal Edema - Neurological Exam Neurological Exam: Alert, Awake - Psychiatric Exam Psychiatric exam: Normal Affect - Skin Skin Exam: Warm Assessment and Plan - Assessment and Plan (Free Text) Assessment: Choledocholithiasis * Patient with fever and uptrending LFTs and T. bili noted on post op day one- now downtrending; afebrile. * MRCP with filling defects noted * GI (Dr. Landrum) on the case. * ERCP 03/27: 4 small stones removed * EGD results: Normal esophagus. Z-line regular. Gastritis, biopsied. Normal duodenal bulb and 2nd part duodenum. Perform ERCP. * ERCP: Filling defect consistent with a stone on cholangiogram. Entire main bile duct mildly dilated. Biliary tree swept. Choledocolithiasis. - Reccs: ADAT, Check liver enzymes (AST/ALT/Alk Phos, Bilirubin) GI s/o s/p Cholecystectomy * General surgery (Dr. Rivera) on the case- F/U recommendations * Infectious disease (Dr. Vila) on the case-F/U recommendations * HIDA (03/23/17): nonvisualization of cystic duct, common duct, small bowel at 60 minutes. * Abdominal US (03/23/17): Gallstones and sludge with mildly prominent common duct. (see full report) * Continued on Zosyn 3.75 IV Q 6hr per ID * Tylenol 650mg PO Q 6PRN T>100.4F * LR @ 100 Postoperative Fever * Resolved * Infectious disease (Dr. Vila) F/U * CXR (03/25/17): Markings at LL base, infiltrate vs atelectasis. Mild venous congestoin. Mild cardiomegaly. (see full report) * UA (03/26/17): 1+ blood, LE & nitrate negative * Urine Cx (03/26/17): No growth * Blood cx (03/26/17): no growth x 24 hrs, x 2 * Tylenol 650mg PO Q 6PRN T>100.4F * Rocephin discontinued; Started on Zosyn 3.75 IV Q 6hr per ID * Incentive spirometer Hx of herniated discs * percocet 1 tab q4prn * Patient noted he was on narcotic pain prns per his PMD to relieve his back pain Transaminitis * Downtrending * Cont to monitor Abnormal UA * UA (03/26/17): 1+ blood, LE & nitrate negative * Urine Cx (03/26/17): No growth PPX * SCDs. Encourage ambulation as tolerated. * Low risk for venous thrombotic event as patient is ambulating. * Protonix 40mg ivp daily * Incentive Spirometer * colace 100mg BID, sennakot
[2017-03-28] MEDS: Oxycodone/Acetaminophen 5/325 mg Tab PO PRN ×2 (18:39→23:46)
[2017-03-29] MEDS: Piperacill/Tazo 3.375gm in Dex 3.375 GM/50 ML BAG IVPB SCH ×4 (02:00→19:43)
[2017-03-29] MEDS: Oxycodone/Acetaminophen 5/325 mg Tab PO PRN ×5 (03:24→22:03)
[2017-03-29] MEDS: Potassium Ch 20mEq in D5-1/2NS 1,000 ML IV SCH ×2 (03:24→09:44)
--- NOTE | 2017-03-29 06:48 | CP.PCM.PN ---
Subjective - Date & Time of Evaluation Date of Evaluation: 03/29/17 Time of Evaluation: 08:10 - Subjective Subjective: Medicine Note- Hospitalist Service Patient was seen and examined at bedside. Patient reports no acute complaints at this time. He says he has some mild RUQ abdominal pain but it is well controlled. Patient is passing flatus, but has not had a bowel movement yet. Per patient and nursing, he has been eating solid food for several days, including popeyes, m[employer]onalds, tajik food, etc. He says he tolerated it without a problem. No events overnight Objective - Vital Signs/Intake and Output Vital Signs (last 24 hours): Temp Pulse Resp BP Pulse Ox 97.7 F 84 20 117/69 94 L 03/28/17 23:07 03/28/17 23:07 03/28/17 23:07 03/28/17 23:07 03/28/17 23:07 Intake and Output: 03/28/17 03/29/17 18:59 06:59 Intake Total 800 900 Output Total 4 2 Balance 796 898 - Medications Medications: Current Medications Acetaminophen (Tylenol 325mg Tab) 650 mg PO Q6 PRN PRN Reason: Fever >100.4 F Last Admin: 03/25/17 14:57 Dose: 650 mg Docusate Sodium (Colace) 100 mg PO BID [facility] Last Admin: 03/28/17 17:46 Dose: 100 mg Potassium Chloride/Dextrose/Sod Cl (Potassium Chl 20 Meq In D5-1/2ns) 1,000 mls @ 100 mls/hr IV .Q10H [facility] Last Admin: 03/29/17 03:24 Dose: 100 mls/hr Piperacillin Sod/Tazobactam Sod (Zosyn 3.375 Gm Iv Premix) 3.375 gm in 50 mls @ 100 mls/hr IVPB Q6H [facility] Last Admin: 03/29/17 02:00 Dose: 100 mls/hr Lactated Ringer's (Lactated Ringer's) 1,000 mls @ 100 mls/hr IV .Q10H [facility] Ibuprofen (Motrin Tab) 400 mg PO BID PRN PRN Reason: Pain, Mild (1-3) Ondansetron HCl (Zofran Inj) 4 mg IVP Q6H PRN PRN Reason: Nausea/Vomiting Last Admin: 03/24/17 10:59 Dose: 4 mg Oxycodone/Acetaminophen (Percocet 5/325 Mg Tab) 2 tab PO Q4H PRN PRN Reason: Pain, moderate (4-7) Stop: 03/31/17 11:12 Last Admin: 03/29/17 03:24 Dose: 2 tab Pantoprazole Sodium (Protonix Inj) 40 mg IVP DAILY [facility] Last Admin: 03/28/17 09:16 Dose: 40 mg - Labs Labs: 03/28/17 06:51 03/28/17 06:47 PT 12.7 SECONDS (9.7-12.2) H 03/24/17 11:22 INR 1.1 03/24/17 11:22 APTT 33 SECONDS (21-34) 03/24/17 11:22 - Constitutional Appears: Non-toxic, No Acute Distress - Head Exam Head Exam: ATRAUMATIC, NORMAL INSPECTION, NORMOCEPHALIC - Eye Exam Pupil Exam: NORMAL ACCOMODATION, PERRL - ENT Exam ENT Exam: Mucous Membranes Moist - Neck Exam Neck Exam: Normal Inspection - Respiratory Exam Respiratory Exam: Clear to Ausculation Bilateral, NORMAL BREATHING PATTERN. absent: Prolonged Expiratory Phase, Rales, Rhonchi, Wheezes - Cardiovascular Exam Cardiovascular Exam: REGULAR RHYTHM, +S1, +S2 - GI/Abdominal Exam GI & Abdominal Exam: Soft, Tenderness (tender RUQ, drain still in place), Normal Bowel Sounds. absent: Diminished Bowel Sounds, Hernia, Hypoactive Bowel Sounds - Extremities Exam Extremities Exam: Normal Capillary Refill, Normal Inspection - Neurological Exam Neurological Exam: Alert, Awake, Oriented x3 - Psychiatric Exam Psychiatric exam: Normal Affect, Normal Mood - Skin Skin Exam: Dry, Intact, Normal Color, Warm Assessment and Plan - Assessment and Plan (Free Text) Assessment: Choledocholithiasis * Patient with fever and uptrending LFTs and T. bili noted on post op day one- now downtrending; afebrile. * MRCP with filling defects noted * GI (Dr. Landrum) on the case. * ERCP 03/27: 4 small stones removed * EGD results: Normal esophagus. Z-line regular. Gastritis, biopsied. Normal duodenal bulb and 2nd part duodenum. Perform ERCP. * ERCP: Filling defect consistent with a stone on cholangiogram. Entire main bile duct mildly dilated. Biliary tree swept. Choledocolithiasis. - Reccs: ADAT, Check liver enzymes (AST/ALT/Alk Phos, Bilirubin) GI s/o - Advanced patient to low fat soft diet s/p Cholecystectomy * General surgery (Dr. Rivera) on the case- F/U recommendations * Infectious disease (Dr. Vila) on the case-F/U recommendations * HIDA (03/23/17): nonvisualization of cystic duct, common duct, small bowel at 60 minutes. * Abdominal US (03/23/17): Gallstones and sludge with mildly prominent common duct. (see full report) * Continued on Zosyn 3.75 IV Q 6hr per ID (started on 03/25/17) * Tylenol 650mg PO Q 6PRN T>100.4F * LR @ 100 * Cholecystectomy (03/24/17) day #5 Postoperative Fever * Resolved * Infectious disease (Dr. Vila) F/U * CXR (03/25/17): Markings at LL base, infiltrate vs atelectasis. Mild venous congestoin. Mild cardiomegaly. (see full report) * UA (03/26/17): 1+ blood, LE & nitrate negative * Urine Cx (03/26/17): No growth * Blood cx (03/26/17): no growth x 24 hrs, x 2 * Tylenol 650mg PO Q 6PRN T>100.4F * Rocephin discontinued; Started on Zosyn 3.75 IV Q 6hr per ID * Incentive spirometer Hx of herniated discs * percocet 2 tab q4prn * Patient noted he was on narcotic pain prns per his PMD to relieve his back pain Transaminitis * Downtrending * Cont to monitor Abnormal UA * UA (03/26/17): 1+ blood, LE & nitrate negative * Urine Cx (03/26/17): No growth PPX * SCDs. Encourage ambulation as tolerated. * Low risk for venous thrombotic event as patient is ambulating. * Protonix 40mg ivp daily * Incentive Spirometer * colace 100mg BID, sennakot
[2017-03-29 08:31] LABS: BASO # 0.1 K/uL (0.0-0.2); BASO % 0.7 % (0.0-2.0); EOS # 0.3 K/uL (0.0-0.7); EOS % 3.8 % (0.0-4.0); HEMATOCRIT 32.6 % (35.0-51.0); LYMPH # 1.7 K/uL (1.0-4.3); LYMPH % 22.2 % (20.0-40.0); MEAN CORPUSCULAR HEMOGLOBIN 25.8 pg (27.0-31.0); MEAN CORPUSCULAR HGB CONC 32.2 g/dL (33.0-37.0); MEAN PLATELET VOLUME 7.6 fL (7.2-11.7); MONO # 0.7 K/uL (0.0-0.8); MONO % 8.8 % (0.0-10.0); NRBC % 0.1 % (0.0-2.0); RED CELL DISTRIBUTION WIDTH 13.1 % (11.5-14.5); WHITE BLOOD COUNT 7.7 K/uL (4.8-10.8)
[2017-03-29 08:37] LABS: CHLORIDE 102 mmol/L (98-107)
[2017-03-29 08:38] LABS: POTASSIUM 4.2 mmol/L (3.6-5.2); SODIUM 141 mmol/L (132-148)
[2017-03-29 08:40] LABS: BILIRUBIN,TOTAL 0.8 mg/dL (0.2-1.3); CARBON DIOXIDE 30 mmol/L (22-30); GFR AFRICAN-AMERICAN > 60; TOTAL PROTEIN 7.1 g/dL (6.3-8.3)
[2017-03-29 08:41] LABS: ALKALINE PHOSPHATASE 187 U/L (38-126); ALT/SGPT 89 U/L (21-72); AST/SGOT 25 U/L (17-59); BLOOD UREA NITROGEN 5 mg/dL (9-20); CALCIUM 8.9 mg/dl (8.6-10.4); GLUCOSE,RANDOM 94 mg/dL (75-110); MAGNESIUM 2.3 mg/dL (1.6-2.3)
[2017-03-29] MEDS ORDERED: Benzocaine/Menthol (Cepacol) Lozenge MT PRN (08:54)
--- NOTE | 2017-03-29 15:32 | CP.PCM.PN ---
Subjective - Date & Time of Evaluation Date of Evaluation: 03/29/17 Time of Evaluation: 08:00 - Subjective Subjective: no fever lft's improving abd nontender drain in place rx renewed Objective - Vital Signs/Intake and Output Vital Signs (last 24 hours): Temp Pulse Resp BP Pulse Ox 98.0 F 72 17 100/63 95 03/29/17 07:05 03/29/17 07:05 03/29/17 07:05 03/29/17 07:05 03/29/17 07:05 Intake and Output: 03/29/17 03/29/17 06:59 18:59 Intake Total 900 480 Output Total 2 14 Balance 898 466 - Medications Medications: Current Medications Acetaminophen (Tylenol 325mg Tab) 650 mg PO Q6 PRN PRN Reason: Fever >100.4 F Last Admin: 03/25/17 14:57 Dose: 650 mg Benzocaine/Menthol (Cepacol Sore Throat) 1 pilar MT Q1 PRN PRN Reason: Sore Throat Docusate Sodium (Colace) 100 mg PO BID [facility] Last Admin: 03/29/17 09:41 Dose: 100 mg Potassium Chloride/Dextrose/Sod Cl (Potassium Chl 20 Meq In D5-1/2ns) 1,000 mls @ 100 mls/hr IV .Q10H [facility] Last Admin: 03/29/17 09:44 Dose: Not Given Piperacillin Sod/Tazobactam Sod (Zosyn 3.375 Gm Iv Premix) 3.375 gm in 50 mls @ 100 mls/hr IVPB Q6H [facility] Last Admin: 03/29/17 13:29 Dose: 100 mls/hr Lactated Ringer's (Lactated Ringer's) 1,000 mls @ 100 mls/hr IV .Q10H [facility] Ibuprofen (Motrin Tab) 400 mg PO BID PRN PRN Reason: Pain, Mild (1-3) Ondansetron HCl (Zofran Inj) 4 mg IVP Q6H PRN PRN Reason: Nausea/Vomiting Last Admin: 03/24/17 10:59 Dose: 4 mg Oxycodone/Acetaminophen (Percocet 5/325 Mg Tab) 2 tab PO Q4H PRN PRN Reason: Pain, moderate (4-7) Stop: 03/31/17 11:12 Last Admin: 03/29/17 13:29 Dose: 2 tab Pantoprazole Sodium (Protonix Inj) 40 mg IVP DAILY [facility] Last Admin: 03/29/17 09:41 Dose: 40 mg - Labs Labs: 03/29/17 08:14 03/29/17 08:14 PT 12.7 SECONDS (9.7-12.2) H 03/24/17 11:22 INR 1.1 03/24/17 11:22 APTT 33 SECONDS (21-34) 03/24/17 11:22 Assessment and Plan (1) Fever Status: Acute (2) Fever Status: Acute (3) Gallstones Status: Acute (4) Leukocytosis Status: Acute (5) Right upper quadrant abdominal pain Status: Acute
--- NOTE | 2017-03-29 22:01 | RAD ---
PROCEDURE: Intraoperative Fluoroscopy. HISTORY: CBD STONE FINDINGS: Fluoroscopic assistance was provided for ERCP. Please refer to the
[2017-03-30] MEDS: Piperacill/Tazo 3.375gm in Dex 3.375 GM/50 ML BAG IVPB SCH ×3 (01:03→13:25)
[2017-03-30] MEDS: Oxycodone/Acetaminophen 5/325 mg Tab PO PRN ×3 (01:53→12:14)
[2017-03-30 07:37] LABS: BASO # 0.1 K/uL (0.0-0.2); BASO % 0.6 % (0.0-2.0); EOS # 0.3 K/uL (0.0-0.7); EOS % 3.6 % (0.0-4.0); HEMATOCRIT 36.3 % (35.0-51.0); LYMPH # 2.2 K/uL (1.0-4.3); MEAN CELL VOLUME 80.5 fL (80.0-94.0); MEAN CORPUSCULAR HEMOGLOBIN 25.5 pg (27.0-31.0); MEAN CORPUSCULAR HGB CONC 31.7 g/dL (33.0-37.0); MEAN PLATELET VOLUME 7.5 fL (7.2-11.7); MONO # 0.7 K/uL (0.0-0.8); RED CELL DISTRIBUTION WIDTH 13.3 % (11.5-14.5); WHITE BLOOD COUNT 9.4 K/uL (4.8-10.8)
[2017-03-30 07:43] LABS: CHLORIDE 96 mmol/L (98-107); SODIUM 137 mmol/L (132-148)
[2017-03-30 07:44] LABS: POTASSIUM 4.5 mmol/L (3.6-5.2)
[2017-03-30 07:45] LABS: GFR AFRICAN-AMERICAN > 60
[2017-03-30 07:46] LABS: ALKALINE PHOSPHATASE 197 U/L (38-126); ALT/SGPT 78 U/L (21-72); AST/SGOT 29 U/L (17-59); BILIRUBIN,TOTAL 0.9 mg/dL (0.2-1.3); BLOOD UREA NITROGEN 6 mg/dL (9-20); CARBON DIOXIDE 30 mmol/L (22-30); GLUCOSE,RANDOM 92 mg/dL (75-110); PHOSPHOROUS 4.8 mg/dL (2.5-4.5); TOTAL PROTEIN 7.8 g/dL (6.3-8.3)
[2017-03-30 07:47] VITALS: RESP 20
[2017-03-30 07:47] LABS: CALCIUM 9.1 mg/dl (8.6-10.4); MAGNESIUM 2.2 mg/dL (1.6-2.3)
[2017-03-30] MEDS ORDERED: POLYETHYLENE GLYCOL 3350 17 GM/Dose PACKET PO ONE (13:14)
[2017-03-30 15:43] VITALS: BP 106/68; PULSE 92; TEMP 98.1; O2SAT 98
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
== END 2017-03-30 16:43 | disposition home or self-care (01) | DRG 493 ==
LOC: C.ER 17:00 → C.9E 21:28 → C.3T 23:13 → C.5T 03-24 22:36
PROVIDERS: ADMIT Hospitalist; ATTEND Hospitalist
PROC: 0FT44ZZ Resection of Gallbladder, Percutaneous Endoscopic Approach (ICD-10-PCS; principal; 2017-03-24 17:00)
PROC: 0DB68ZX Excision of Stomach, Via Natural or Artificial Opening Endoscopic, Diagnostic (ICD-10-PCS; 2017-03-27)
PROC: 0FC98ZZ Extirpation of Matter from Common Bile Duct, Via Natural or Artificial Opening Endoscopic (ICD-10-PCS; 2017-03-27 15:09)
DX: K80.62 Calculus of gallbladder and bile duct with acute cholecystitis without obstruction (principal); E87.6 Hypokalemia; R50.82 Postprocedural fever; K29.70 Gastritis, unspecified, without bleeding; I51.7 Cardiomegaly; D72.829 Elevated white blood cell count, unspecified; F17.210 Nicotine dependence, cigarettes, uncomplicated; R74.0 Nonspecific elevation of levels of transaminase and lactic acid dehydrogenase [LDH]; G89.29 Other chronic pain; V89.2XXS Person injured in unspecified motor-vehicle accident, traffic, sequela